=== PATIENT | female | born 1945 | race Caucasian/White ===

== ENCOUNTER 2016-08-07 20:30 | Inpatient (IN) | payer MEDICAID ==
[~2016-08-07] VITALS: Ht 154.9 cm; Wt 72.6 kg
[~2016-08-07 20:30] MED LIST: ACETAMINOPHEN325 M1 ORAL; AMBIEN5 MG ORAL; AMOXICILLIN500 MG ORAL; ASPIR-LOW81 MG PO; COLACE100 MG ORAL; DICLOFENAC SODI75 MG PO; FOLIC ACID1 MG ORAL; GLYBURIDE-METF1 EAC1 PO; HYDROCODON-ACE1 EA13 ORAL; LEVEMIR FL100 UNIT/1 SUBQ; LEVEMIR FL100 UNIT/2 SQ; LISINOPRIL40 MG PO; LISINOPRIL5 MG ORAL; LOVENOX10 MG SUBQ; METHOTREXATE2.5 MG PO; MIRALAX17 G2 ORAL; NORCO 5-325 TA1 EACH PO; NOVOLOG100 UNITS1 SUBQ; RANITIDINE HCL150 MG ORAL; SENNA-GEN8.6 M1 ORAL; ZOCOR20 M1 ORAL
[2016-08-07 22:00] VITALS: BP 107/49
[2016-08-07 22:23] LABS: MEAN CORPUSCULAR HGB CONC 33.1 G/DL (32.0-36.0); MEAN CORPUSCULAR VOLUME 94 FL (80-99); MEAN PLATELET VOLUME 6.2 FL (6.5-10.1); PLATELET COUNT 213 K/UL (150-450); RED CELL DISTRIBUTION WIDTH 15.3 % (11.6-14.8); WHITE BLOOD COUNT 9.6 K/UL (4.8-10.8)
[2016-08-07 22:38] LABS: ALANINE AMINOTRANSFERASE 27 U/L (3-33); ALBUMIN/GLOBULIN RATIO 0.7 (1.0-2.7); ASPARTATE AMINO TRANSFERASE 42 U/L (5-40); CALCIUM 9.2 mg/dL (8.6-10.2); CARBON DIOXIDE 21 mEQ/L (20-30); CREATININE 1.5 mg/dL (0.5-0.9); HEMOLYSIS 2; SODIUM 132 mEQ/L (135-145); TROPONIN I < 0.30 ng/mL (<=0.30)
[2016-08-07 22:39] LABS: ANION GAP 19 (5-15); CHLORIDE 92 mEQ/L (98-107); POTASSIUM 4.1 mEQ/L (3.4-4.9)
[2016-08-07 22:41] LABS: REFLEX LACTIC ACID YES OR NO YES
[2016-08-07 22:48] LABS: CKMB < 1.5 ng/mL (< 3.8)
[2016-08-07 23:00] LABS: BAND NEUTROPHILS % (MANUAL) 5 % (0-8); LYMPHOCYTES % (MANUAL) 8 % (20-45); NEUTROPHILS % (MANUAL) 85 % (45-75); TOTAL CELLS COUNTED 100
[2016-08-07 23:01] LABS: BASOPHILS % (MANUAL) 0 % (0-2); EOSINOPHILS % (MANUAL) 0 % (0-3); PLATELET ESTIMATE ADEQUATE; PLATELET MORPHOLOGY NORMAL
[2016-08-07 23:02] LABS: APPEARANCE,URINE CLOUDY; KETONES,URINE NEGATIVE (NEGATIVE); LEUKOCYTE ESTERASE ,URINE 3+ (NEGATIVE); NITRITE,URINE NEGATIVE (NEGATIVE); PROTEIN,URINE 3+ (NEGATIVE); UROBILINOGEN,URINE 4 MG/DL (0.0-1.0)
[2016-08-07 23:12] LABS: BACTERIA,URINE MANY /HPF; RBC,URINE 15-20 /HPF (0 - 2); SQUAMOUS EPITHELIAL CELL,UR MODERATE /LPF (NONE/OCC); WBC,URINE TNTC /HPF (0 - 2)
[2016-08-07] MEDS ORDERED: Unasyn 3gm Inj ONE (23:57)
[2016-08-08] VITALS (10 sets, daily range): BP systolic 85–112; BP diastolic 48–67
[2016-08-08] MEDS: Ampicillin/Sulbactam Sod 3 GM in NS 110 ML IV SCH ×2 (00:08→04:25)
[2016-08-08] MEDS: metroNIDAZOLE 500mg 100 ML IV SCH ×2 (00:54→04:59)
--- NOTE | 2016-08-08 00:55 | Emergency Room Report ---
History of Present Illness General Chief Complaint: Abnormal Labs Source: Patient, Family Member Present Illness HPI Patient is a 71-year-old female who presented after increased blood sugar. Patient was noted to have gradual onset of symptoms. She had subjective chills. The patient had prior history of [id number] diabetes. The patient had gradually worsening symptoms. She reported having some generalized body aches. She had been compliant with her medications reportedly. Patient reported having some increased lower abdominal pain as well as some dysuria. She is reported having some increased pain to her right side Allergies: Coded Allergies: No Known Allergies (Unverified , 12/21/11) Patient History Past Medical History: see triage record Reviewed Nursing Documentation: PMH: Agreed, PSxH: Agreed Nursing Documentation-PMH Hx Cardiac Problems: No Hx Hypertension: Yes Hx Diabetes: Yes Hx Cancer: No Hx Gastrointestinal Problems: No Hx Neurological Problems: No Hx Headaches: Yes Hx Numbness: Yes - HANDS AND FEET Hx Weakness: Yes Review of Systems All Other Systems: negative except mentioned in HPI Physical Exam Vital Signs Date Time Temp Pulse Resp B/P Pulse Ox O2 Delivery O2 Flow Rate FiO2 08/07/16 20:53 99.7 142 18 111/72 96 Room Air Sp02 EP Interpretation: reviewed, normal General Appearance: alert, GCS 15, moderate distress, obese Head: atraumatic ENT: normal ENT inspection, hearing grossly normal, normal voice Neck: normal inspection, full range of motion, supple, no bony tend Respiratory: normal inspection, lungs clear, normal breath sounds, no respiratory distress, no retraction, no wheezing Cardiovascular #1: tachycardia, edema Gastrointestinal: normal inspection, normal bowel sounds, non tender, soft, no guarding, no hernia Genitourinary: normal inspection Musculoskeletal: normal inspection, back normal, normal range of motion Neurologic: normal inspection, alert, oriented x3, responsive, machine filler servicer III-XII nml as tested, speech normal Psychiatric: normal inspection, judgement/insight normal, mood/affect normal Skin: normal inspection, normal color, no rash Procedures Critical Care Time Critical Care Time Patient had a critical medical condition which untreated could potentially result in life or limb threatening injury. Total critical care time excluding procedures approximately 45 minutes. Medical Decision Making Diagnostic Impression: Primary Impression: Pyelonephritis Additional Impressions: Sepsis Leukocytosis Diabetes ER Course Patient presented for high blood sugar . The patient was noted to have some fever. . Differential diagnosis included was not limited to anemia, urinary tract infection, electrolyte abnormality, hypothyroidism, myocardial infarction , myasthenia gravis, dehydration, among others. EKG to remove me showed sinus tachycardia with a rate of 131 there were no acute ST or T wave changes noted. Rhythm strip interpreted by me showed sinus tachycardia without evident PVCs or ectopy. The patient was given IV fluids as well as IV antibiotics. Laboratory testing was notable for elevated blood sugar as well as white blood count normal with a left shift. Urinalysis showed too numerous to count white cells. Lactic acid level was 2.0. Dr. mathews was contacted for inpatient management. Labs Test 08/07/16 21:12 08/07/16 21:50 08/07/16 23:40 Urine Color Yellow Urine Appearance Cloudy Urine pH 5.0 (4.5-8.0) Urine Specific [place] 1.020 (1.005-1.035) Urine Protein 3+ (NEGATIVE) Urine Glucose (UA) 3+ (NEGATIVE) Urine Ketones Negative (NEGATIVE) Urine Occult Blood 4+ (NEGATIVE) Urine Nitrite Negative (NEGATIVE) Urine Bilirubin Negative (NEGATIVE) Urine Urobilinogen 4 MG/DL (0.0-1.0) Urine Leukocyte Esterase 3+ (NEGATIVE) Urine RBC 15-20 /HPF (0 - 2) Urine WBC Tntc /HPF (0 - 2) Urine Squamous Epithelial Cells Moderate /LPF (NONE/OCC) Urine Bacteria Many /HPF (NONE) White Blood Count 9.6 K/UL (4.8-10.8) Red Blood Count 3.70 M/UL (4.20-5.40) Hemoglobin 11.5 G/DL (12.0-16.0) Hematocrit 34.6 % (37.0-47.0) Mean Corpuscular Volume 94 FL (80-99) Mean Corpuscular Hemoglobin 31.0 PG (27.0-31.0) Mean Corpuscular Hemoglobin Concent 33.1 G/DL (32.0-36.0) Red Cell Distribution Width 15.3 % (11.6-14.8) Platelet Count 213 K/UL (150-450) Mean Platelet Volume 6.2 FL (6.5-10.1) Neutrophils (%) (Auto) % (45.0-75.0) Lymphocytes (%) (Auto) % (20.0-45.0) Monocytes (%) (Auto) % (1.0-10.0) Eosinophils (%) (Auto) % (0.0-3.0) Basophils (%) (Auto) % (0.0-2.0) Differential Total Cells Counted 100 Neutrophils % (Manual) 85 % (45-75) Lymphocytes % (Manual) 8 % (20-45) Monocytes % (Manual) 2 % (1-10) Eosinophils % (Manual) 0 % (0-3) Basophils % (Manual) 0 % (0-2) Band Neutrophils 5 % (0-8) Platelet Estimate Adequate Platelet Morphology Normal Red Blood Cell Morphology Normal Sodium Level 132 mEQ/L (135-145) Potassium Level 4.1 mEQ/L (3.4-4.9) Chloride Level 92 mEQ/L (98-107) Carbon Dioxide Level 21 mEQ/L (20-30) Anion Gap 19 (5-15) Blood Urea Nitrogen 32 mg/dL (7-23) Creatinine 1.5 mg/dL (0.5-0.9) Estimat Glomerular Filtration Rate mL/min (>60) Glucose Level 374 mg/dL (74-106) Calcium Level 9.2 mg/dL (8.6-10.2) Total Bilirubin 1.0 mg/dL (0.0-1.2) Aspartate Amino Transf (AST/SGOT) 42 U/L (5-40) Alanine Aminotransferase (ALT/SGPT) 27 U/L (3-33) Alkaline Phosphatase 132 U/L (35-104) Total Creatine Kinase 46 U/L (26-140) Creatine Kinase MB < 1.5 ng/mL (< 3.8) Creatine Kinase MB Relative Index Troponin I < 0.30 ng/mL (<=0.30) Total Protein 8.0 g/dL (6.6-8.7) Albumin 3.5 g/dL (3.5-5.2) Globulin 4.5 g/dL Albumin/Globulin Ratio 0.7 (1.0-2.7) Lactic Acid Level 1.10 mmol/L (0.66-2.22) EKG Diagnostic Results Rate: tachycardiac - 131 Chest X-Ray Diagnostic Results EP Interpretation: Yes Findings: no consolidation, no effusion, no pneumothorax, no acute cardiopulmonary disease Number of Views: 1 Last Vital Signs Date Time Temp Pulse Resp B/P Pulse Ox O2 Delivery O2 Flow Rate FiO2 08/08/16 00:00 98.9 104 21 112/48 97 Room Air Status: unchanged Disposition: ADMITTED INPATIENT Condition: Serious Referrals: NON PHYSICIAN (PCP) Michael Tucker Aug 08, 2016 00:55
[2016-08-08] MEDS ORDERED: Morphine Sulfate 4mg/ml Inj IVP ONE (04:00)
[2016-08-08] MEDS ORDERED: Unasyn 3gm Inj ONE (04:24)
[2016-08-08] MEDS ORDERED: LORazepam Inj 2mg/ml 1ml IV ONE (04:45)
[2016-08-08] MEDS: NovoLOG Insulin Flexpen SUBQ SCH ×4 (06:30→22:02)
[2016-08-08] MEDS ORDERED: Cefepime 500mg in D5W 55ml IVPB SCH (08:00)
[2016-08-08] MEDS ORDERED: Heparin 5000 units/ml inj SUBQ SCH (09:00)
[2016-08-08] MEDS ORDERED: Lisinopril 10mg tab ORAL SCH (09:00)
[2016-08-08] MEDS ORDERED: Cefepime HCl 1 GM in D5W 55 ML IV SCH (09:00)
[2016-08-08 09:35] LABS: MEAN CORPUSCULAR HEMOGLOBIN 31.1 PG (27.0-31.0); MEAN CORPUSCULAR HGB CONC 32.7 G/DL (32.0-36.0); MEAN CORPUSCULAR VOLUME 95 FL (80-99); PLATELET COUNT 161 K/UL (150-450); RED BLOOD COUNT 3.03 M/UL (4.20-5.40); RED CELL DISTRIBUTION WIDTH 15.2 % (11.6-14.8); WHITE BLOOD COUNT 13.9 K/UL (4.8-10.8)
[2016-08-08 09:48] LABS: ANION GAP 15 (5-15); CALCIUM 7.8 mg/dL (8.6-10.2); CARBON DIOXIDE 20 mEQ/L (20-30); CHLORIDE 103 mEQ/L (98-107); CREATININE 1.3 mg/dL (0.5-0.9); HEMOLYSIS 4; PHOSPHORUS 2.9 mg/dL (2.5-4.8); POTASSIUM 3.7 mEQ/L (3.4-4.9); SODIUM 138 mEQ/L (135-145)
--- NOTE | 2016-08-08 10:01 | Cardiology Report ---
APPROVED REPORT EKG Measurement Heart [id number] Sinus tachycardia Otherwise normal ECG
[2016-08-08 10:21] LABS: BAND NEUTROPHILS % (MANUAL) 2 % (0-8); BASOPHILS % (MANUAL) 0 % (0-2); EOSINOPHILS % (MANUAL) 5 % (0-3); LYMPHOCYTES % (MANUAL) 12 % (20-45); NEUTROPHILS % (MANUAL) 74 % (45-75); PLATELET ESTIMATE ADEQUATE; PLATELET MORPHOLOGY NORMAL; TOTAL CELLS COUNTED 100
--- NOTE | 2016-08-08 11:01 | Diagnostic Imaging Report ---
Indication: Dyspnea Comparison: 03/01/15 A single view chest radiograph was obtained. Findings: No definite infiltrate or pulmonary vascular congestion identified. The heart is enlarged. The aorta is mildly enlarged consistent with atherosclerotic vascular disease. The bones are osteopenic. Impression: No acute disease
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
--- NOTE | 2016-08-08 13:34 | History and Physical ---
History of Present Illness General Date patient seen: Aug 08, 2016 Reason for Hospitalization: Abnormal Labs Present Illness HPI 71-year-old female with hx of DM, HTN presented to ER with CC of increased blood sugar, subjective chills. She reported having some generalized body aches. She had been compliant with her medications reportedly. Patient reported having some increased lower abdominal pain as well as some dysuria. She was diagnosed to have UTI and uncontrolled DM and admitted to Telemetry for further w/u. Allergies: Coded Allergies: No Known Allergies (Unverified , 12/21/11) Medication History Scheduled Aspirin* (Aspir-Low*), 81 MG PO DAILY, (Reported) Docusate Sodium* (Colace*), 100 MG ORAL TWICE A DAY Enoxaparin* (Lovenox*), 30 MG SUBQ EVERY 12 HOURS Folic Acid* (Folic Acid*), 1 MG ORAL DAILY, (Reported) Insulin Aspart (Novolog Flexpen), 0 UNITS SUBQ BEFORE MEALS AND HS Insulin Detemir (Levemir Flexpen), 10 UNITS SUBQ QHS Lisinopril (Lisinopril*), 10 MG ORAL DAILY, (Reported) Methotrexate Sodium* (Methotrexate*), 12.5 MG PO QWEEK, (Reported) Ranitidine Hcl* (Zantac*), 150 MG ORAL QHS, (Reported) Simvastatin (Zocor), 20 MG ORAL BEDTIME, (Reported) Scheduled PRN Acetaminophen* (Acetaminophen*), 650 MG ORAL Q4H PRN for fever Hydrocodone Bit/Acetaminophen 10-325* (Hydrocodon-Acetaminophn 10-325*), 1 EA ORAL Q4H PRN for mod pain Polyethylene Glycol 3350* (Miralax*), 17 GM ORAL HSPRN PRN for Constipation Sennosides (Senna-Gen), 8.6 MG ORAL DAILY PRN for Constipation Zolpidem Tartrate* (Ambien*), 5 MG ORAL HSPRN PRN for Insomnia Patient History Healthcare decision maker Resuscitation status Advanced Directive on File Past Medical/Surgical History Past Medical/Surgical History: (1) Diabetes (2) HTN (hypertension) (3) Anemia Review of Systems All Other Systems: negative except mentioned in HPI Physical Exam Lines, tubes and drains: peripheral, central line HEENT: normocephalic, atraumatic Neck: non-tender, normal alignment Respiratory/Chest: chest wall non-tender, lungs clear Cardiovascular/Chest: normal peripheral pulses, normal rate Abdomen: normal bowel sounds, non tender Genitourinary/Rectal: normal genital exam, normal rectal exam Extremities: normal range of motion, non-tender Last 24 Hour Vital Signs Date Time Temp Pulse Resp B/P Pulse Ox O2 Delivery O2 Flow Rate FiO2 08/08/16 12:33 98.1 95 18 90/54 96 Nasal Cannula 2.0 08/08/16 08:46 96.4 101 18 104/67 100 Nasal Cannula 2.0 08/08/16 08:30 102 08/08/16 08:06 100 17 90/53 100 Nasal Cannula 2.0 08/08/16 07:55 100 17 81/49 97 Nasal Cannula 2.0 08/08/16 07:01 98.0 99 17 85/49 97 Nasal Cannula 2.0 08/08/16 06:00 98.9 101 17 88/49 99 Nasal Cannula 2.0 08/08/16 04:24 98.7 08/08/16 04:00 98.7 108 18 98/49 99 Room Air 08/08/16 03:10 98.7 08/08/16 02:00 98.7 105 19 109/51 97 Room Air 08/08/16 00:00 98.9 104 21 112/48 97 Room Air 08/07/16 22:00 117 20 107/49 98 Room Air 08/07/16 20:53 99.7 142 18 111/72 96 Room Air Intake and Output 08/07/16 08/08/16 19:00 07:00 Intake Total 2900 ml Balance 2900 ml Intake IV Total 2900 ml # Voids 1 Laboratory Tests Test 08/07/16 21:12 08/07/16 21:50 08/07/16 23:40 08/08/16 08:30 Urine Color Yellow Urine Appearance Cloudy Urine pH 5.0 (4.5-8.0) Urine Specific [place] 1.020 (1.005-1.035) Urine Protein 3+ (NEGATIVE) H Urine Glucose (UA) 3+ (NEGATIVE) H Urine Ketones Negative (NEGATIVE) Urine Occult Blood 4+ (NEGATIVE) H Urine Nitrite Negative (NEGATIVE) Urine Bilirubin Negative (NEGATIVE) Urine Urobilinogen 4 MG/DL (0.0-1.0) H Urine Leukocyte Esterase 3+ (NEGATIVE) H Urine RBC 15-20 /HPF (0 - 2) H Urine WBC Tntc /HPF (0 - 2) H Urine Squamous Epithelial Cells Moderate /LPF (NONE/OCC) H Urine Bacteria Many /HPF (NONE) H White Blood Count 9.6 K/UL (4.8-10.8) 13.9 K/UL (4.8-10.8) H Red Blood Count 3.70 M/UL (4.20-5.40) L 3.03 M/UL (4.20-5.40) L Hemoglobin 11.5 G/DL (12.0-16.0) L 9.4 G/DL (12.0-16.0) L Hematocrit 34.6 % (37.0-47.0) L 28.8 % (37.0-47.0) L Mean Corpuscular Volume 94 FL (80-99) 95 FL (80-99) Mean Corpuscular Hemoglobin 31.0 PG (27.0-31.0) 31.1 PG (27.0-31.0) H Mean Corpuscular Hemoglobin Concent 33.1 G/DL (32.0-36.0) 32.7 G/DL (32.0-36.0) Red Cell Distribution Width 15.3 % (11.6-14.8) H 15.2 % (11.6-14.8) H Platelet Count 213 K/UL (150-450) 161 K/UL (150-450) Mean Platelet Volume 6.2 FL (6.5-10.1) L 6.0 FL (6.5-10.1) L Neutrophils (%) (Auto) % (45.0-75.0) % (45.0-75.0) Lymphocytes (%) (Auto) % (20.0-45.0) % (20.0-45.0) Monocytes (%) (Auto) % (1.0-10.0) % (1.0-10.0) Eosinophils (%) (Auto) % (0.0-3.0) % (0.0-3.0) Basophils (%) (Auto) % (0.0-2.0) % (0.0-2.0) Differential Total Cells Counted 100 100 Neutrophils % (Manual) 85 % (45-75) H 74 % (45-75) Lymphocytes % (Manual) 8 % (20-45) L 12 % (20-45) L Monocytes % (Manual) 2 % (1-10) 7 % (1-10) Eosinophils % (Manual) 0 % (0-3) 5 % (0-3) H Basophils % (Manual) 0 % (0-2) 0 % (0-2) Band Neutrophils 5 % (0-8) 2 % (0-8) Platelet Estimate Adequate Adequate Platelet Morphology Normal Normal Red Blood Cell Morphology Normal Normal Sodium Level 132 mEQ/L (135-145) L 138 mEQ/L (135-145) Potassium Level 4.1 mEQ/L (3.4-4.9) 3.7 mEQ/L (3.4-4.9) Chloride Level 92 mEQ/L (98-107) L 103 mEQ/L (98-107) Carbon Dioxide Level 21 mEQ/L (20-30) 20 mEQ/L (20-30) Anion Gap 19 (5-15) H 15 (5-15) Blood Urea Nitrogen 32 mg/dL (7-23) H 27 mg/dL (7-23) H Creatinine 1.5 mg/dL (0.5-0.9) H 1.3 mg/dL (0.5-0.9) H Estimat Glomerular Filtration Rate mL/min (>60) mL/min (>60) Glucose Level 374 mg/dL (74-106) H 224 mg/dL (74-106) #H Lactic Acid Level 2.00 mmol/L (0.66-2.22) 1.10 mmol/L (0.66-2.22) Calcium Level 9.2 mg/dL (8.6-10.2) 7.8 mg/dL (8.6-10.2) L Total Bilirubin 1.0 mg/dL (0.0-1.2) Aspartate Amino Transf (AST/SGOT) 42 U/L (5-40) H Alanine Aminotransferase (ALT/SGPT) 27 U/L (3-33) Alkaline Phosphatase 132 U/L (35-104) H Total Creatine Kinase 46 U/L (26-140) Creatine Kinase MB < 1.5 ng/mL (< 3.8) Creatine Kinase MB Relative Index Troponin I < 0.30 ng/mL (<=0.30) Total Protein 8.0 g/dL (6.6-8.7) Albumin 3.5 g/dL (3.5-5.2) 2.8 g/dL (3.5-5.2) L Globulin 4.5 g/dL Albumin/Globulin Ratio 0.7 (1.0-2.7) L Phosphorus Level 2.9 mg/dL (2.5-4.8) Height (Feet): 5 Height (Inches): 1.00 Weight (Pounds): 160 Medications Current Medications Medications (Trade) Dose Ordered Sig/Emory Route PRN Reason Start Time Stop Time Status Last Admin Dose Admin Acetaminophen (Tylenol) 650 mg Q4H PRN ORAL fever 08/08/16 00:00 09/07/16 00:00 Al Hydroxide/Mg Hydroxide (Mylanta II) 30 ml Q6H PRN ORAL dyspepsia 08/08/16 00:00 09/07/16 00:00 Albuterol/ Ipratropium (DuoNeb 0.5-3(2.5)mg/3ml) 3 ml Q4H PRN HHN Shortness of Breath 08/08/16 00:00 08/13/16 00:00 Cefepime HCl/ Dextrose (Maxipime/D5W) 55 ml @ 110 mls/hr Q24H IVPB 08/08/16 08:00 08/15/16 07:59 08/08/16 10:39 Dextrose STAT PRN IV Hypoglycemia 08/08/16 00:00 09/07/16 00:00 Heparin Sodium (Porcine) (Heparin 5000 units/ml) 5,000 units EVERY 12 HOURS SUBQ 08/08/16 09:00 09/07/16 08:59 08/08/16 09:32 Insulin Aspart (NovoLOG) BEFORE MEALS AND HS SUBQ 08/08/16 06:30 09/07/16 06:29 Lisinopril (Zestril) 10 mg DAILY ORAL 08/08/16 09:00 09/07/16 08:59 Nitroglycerin (Ntg) 0.4 mg Q5M PRN SL Prn Chest Pain 08/08/16 00:00 09/07/16 00:00 Ondansetron HCl (Zofran) 4 mg Q6H PRN IVP Nausea & Vomiting 08/08/16 00:00 09/07/16 00:00 Polyethylene Glycol (Miralax) 17 gm DAILYPRN PRN ORAL Constipation 08/08/16 00:00 09/07/16 00:00 Temazepam (Restoril) 15 mg HSPRN PRN ORAL Insomnia 08/08/16 00:00 08/15/16 00:00 Assessment/Plan Problem List: (1) Sepsis ICD Codes: A41.9 - Sepsis, unspecified organism SNOMED: 78909066 (2) Diabetes ICD Codes: E11.9 - Diabetes mellitus SNOMED: 94407456 (3) Pyelonephritis ICD Codes: N12 - Tubulo-interstitial nephritis, not specified as acute or chronic SNOMED: 33528170 (4) HTN (hypertension) ICD Codes: I10 - Essential (primary) hypertension SNOMED: 80780280 Assessment/Plan IV fluids IV antibiotics check cultures sliding scale diabetic diet. SABAR WELLS Aug 08, 2016 13:34
[2016-08-08] MEDS ORDERED: Mylanta II UD 30ml ORAL PRN ×2 (19:00)
[2016-08-08] MEDS ORDERED: DuoNeb 0.5-3(2.5)mg/3ml neb HHN PRN ×2 (19:00)
[2016-08-08] MEDS ORDERED: Miralax 17gm pkt ORAL PRN ×2 (19:00)
[2016-08-08] MEDS ORDERED: Nitroglycerin Subl 0.4mg tab (Bottle Of 25) SL PRN ×2 (19:00)
--- NOTE | 2016-08-08 19:28 | Consultation ---
DATE OF CONSULTATION: 08/08/2016 CONSULTING PHYSICIAN: Manjinder Flower M.D. REFERRING PHYSICIAN: Raul Worthy M.D. REASON FOR CONSULTATION: Urinary tract infection. HISTORY OF PRESENT ILLNESS: This is a 71-year-old diabetic female, admitted on 08/07/2016 with hyperglycemia. Urinalysis suggests probable urinary tract infection. Urine culture is pending. She has a history of growth of pansensitive E. coli. Associated acute leukocytosis, but no fevers or lactic acidosis. Chest x-ray shows no acute findings. Of note, upon chart review, the patient was noted in September 2015 to have mitral valve calcification versus vegetation. No blood cultures were sent at that time. Surveillance blood culture on this admission is pending. She has been started on empiric cefepime and ID now consulted to assist in management. PAST MEDICAL HISTORY: 1. Diabetes, uncontrolled with a hemoglobin A1c of 10.5% in September 2015. 2. Hypertension. PAST SURGICAL HISTORY: 1. Right knee open reduction and internal fixation on 10/01/2015. 2. . FAMILY HISTORY: Noncontributory. SOCIAL HISTORY: Denies tobacco, alcohol, or illicit drug abuse. ALLERGIES: No known drug allergies. MEDICATIONS: 1. Cefepime. 2. Subcutaneous heparin. 3. Lisinopril. 4. Insulin. REVIEW OF SYSTEMS: As per history of present illness. Ten systems reviewed. All pertinent positives and negatives noted. PHYSICAL EXAMINATION: VITAL SIGNS: Maximum temperature 99.7, blood pressure 90/54, heart rate in the 90s, respiratory rate 18, and saturating 96% on 2 liters nasal cannula. GENERAL: In no apparent distress. Nontoxic appearing. CARDIOVASCULAR: Regular rate and rhythm. No murmurs. PULMONARY: Clear to auscultation bilaterally. ABDOMINAL: Bowel sounds present. Soft, nondistended, and nontender. EXTREMITIES: Edema. LABORATORY DATA: White blood cell count 13.9, increased from 9.6; hemoglobin 9.4; and platelets 161,000. Sodium 138; potassium 3.7; chloride 103; bicarbonate 20; BUN 27; and creatinine 1.3, decreased from 1.5. Lactic acid 2, decreased to 1.1. AST 42, ALT 27, alkaline phosphatase 132, total bilirubin 1, and albumin 3.5. Troponin negative x1. MICROBIOLOGY: 1. From 08/07/2016, blood culture pending. 2. From 08/07/2016, urine culture pending with positive urinalysis. 3. From 08/07/2016, sputum culture pending. IMAGING: On 08/07/2016, chest x-ray, no acute findings. ASSESSMENT: 1. Probable recurrent urinary tract infection. Urine culture is pending. She has a history of growth of pansensitive Escherichia coli. Ultrasound is pending. 2. History of thickened mitral valve leaflets with echogenic material. Cannot exclude vegetation seen on echocardiogram. Transthoracic echocardiogram in September 2015 ruled out subacute bacterial endocarditis. No blood cultures were sent at that time and surveillance blood cultures on this admission are pending. 3. Acute leukocytosis, afebrile. 4. Acute renal failure, improved. 5. Diabetes with hyperglycemia. Hemoglobin A1c of 10.5% in September 2015. 6. No known drug allergies. 7. Full Code. PLAN: 1. Continue empiric IV cefepime day #1 of 3 to 5. 2. Repeat transthoracic echocardiogram. 3. Follow up cultures. 4. Monitor CBC and temperatures. 5. Monitor BMP. Thank you. We will follow. Manjinder Flower M.D. DR: CODY JOB#: [id number] CC: Raul Worthy M.D.; Fax#: [phone] Alborzi, M.D ; Fax#: [phone]
[2016-08-08] MEDS: Heparin 5000 units/ml inj SUBQ SCH (22:03)
[2016-08-09] VITALS (7 sets, daily range): BP systolic 96–144; BP diastolic 58–87
[2016-08-09] MEDS: NovoLOG Insulin Flexpen SUBQ SCH ×4 (06:07→20:44)
[2016-08-09 06:59] LABS: BASOPHILS % (AUTO) 0.3 % (0.0-2.0); EOSINOPHILS % (AUTO) 1.1 % (0.0-3.0); LYMPHOCYTES % (AUTO) 14.6 % (20.0-45.0); MEAN CORPUSCULAR HEMOGLOBIN 31.3 PG (27.0-31.0); MEAN CORPUSCULAR HGB CONC 33.5 G/DL (32.0-36.0); MEAN CORPUSCULAR VOLUME 93 FL (80-99); MEAN PLATELET VOLUME 6.4 FL (6.5-10.1); MONOCYTES % (AUTO) 6.4 % (1.0-10.0); NEUTROPHILS % (AUTO) 77.7 % (45.0-75.0); PLATELET COUNT 175 K/UL (150-450); RED BLOOD COUNT 2.97 M/UL (4.20-5.40); RED CELL DISTRIBUTION WIDTH 15.5 % (11.6-14.8); WHITE BLOOD COUNT 13.8 K/UL (4.8-10.8)
[2016-08-09 07:19] LABS: ALANINE AMINOTRANSFERASE 13 U/L (3-33); ALBUMIN/GLOBULIN RATIO 0.7 (1.0-2.7); ANION GAP 14 (5-15); ASPARTATE AMINO TRANSFERASE 16 U/L (5-40); CARBON DIOXIDE 21 mEQ/L (20-30); CHLORIDE 104 mEQ/L (98-107); CREATININE 0.9 mg/dL (0.5-0.9); CRP QUANT 17.9 mg/dL (< 0.5); HEMOLYSIS 0; MAGNESIUM 1.9 mg/dL (1.7-2.5); PHOSPHORUS 2.7 mg/dL (2.5-4.8); POTASSIUM 3.7 mEQ/L (3.4-4.9); SODIUM 139 mEQ/L (135-145); TOTAL PROTEIN 6.2 g/dL (6.6-8.7)
[2016-08-09] MEDS ORDERED: Cefepime HCl 500 MG in D5W 55 ML IVPB SCH (08:00)
[2016-08-09] MEDS: Heparin 5000 units/ml inj SUBQ SCH ×2 (08:45→20:43)
[2016-08-09] MEDS: Lisinopril 10mg tab ORAL SCH (08:46)
[2016-08-09 09:05] LABS: ERYTHROCYTE SEDIMENTATION RATE 93 MM/HR (0-30)
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
[2016-08-09] MEDS ORDERED: Promethazine/Codeine 5ml UD ORAL PRN (19:15)
[2016-08-09] MEDS ORDERED: Promethazine Plain 6.25mg/5ml ORAL PRN (20:30)
--- NOTE | 2016-08-09 22:30 | Pulmonology Progress Note ---
Assessment/Plan Problems: (1) Sepsis (2) Diabetes (3) Pyelonephritis (4) HTN (hypertension) Assessment/Plan iv antibiotics check cultures iv fluids sliding scale Subjective Allergies: Coded Allergies: No Known Allergies (Unverified , 12/21/11) Objective Last 24 Hour Vital Signs Date Time Temp Pulse Resp B/P Pulse Ox O2 Delivery O2 Flow Rate FiO2 08/09/16 19:30 86 20 Nasal Cannula 2.0 28 08/09/16 19:00 98.2 86 20 118/71 95 Nasal Cannula 2.0 08/09/16 16:00 97.5 83 20 118/66 95 Nasal Cannula 2.0 08/09/16 13:27 98.1 08/09/16 12:48 98.1 83 14 100/58 99 Room Air 08/09/16 08:46 99/59 08/09/16 07:35 98.1 84 15 99/59 98 Nasal Cannula 08/09/16 06:46 84 18 Nasal Cannula 2.0 08/09/16 04:00 98.2 97 19 111/69 97 Room Air 08/09/16 00:00 96.9 89 18 96/58 96 Room Air Intake and Output 08/08/16 08/09/16 19:00 07:00 Intake Total 430 ml 300 ml Output Total 250 ml Balance 180 ml 300 ml IV Total 430 ml 300 ml Output Urine Total 250 ml Objective Lines, tubes and drains: peripheral HEENT: normocephalic, atraumatic Neck: non-tender, normal alignment Respiratory/Chest: chest wall non-tender, lungs clear Cardiovascular/Chest: normal peripheral pulses, normal rate Abdomen: normal bowel sounds, non tender Genitourinary/Rectal: normal genital exam, normal rectal exam Extremities: normal range of motion, non-tender Microbiology Date/Time Source Procedure Growth Status 08/07/16 21:50 Blood Blood Culture - Preliminary NO GROWTH AFTER 24 HOURS Resulted 08/07/16 21:40 Blood Blood Culture - Preliminary NO GROWTH AFTER 24 HOURS Resulted 08/07/16 21:12 Urine,Clean Catch Urine Culture - Preliminary Gram Negative Bacillus 1 Resulted Laboratory Tests 08/09/16 05:20: Urine Osmolality [Pending], Urine Random Sodium 54, Urine Random Chloride 55, Urine Potassium Timed 14, Urine Legionella Antigen [Pending] 08/09/16 06:20: White Blood Count 13.8H, Red Blood Count 2.97L, Hemoglobin 9.3L, Hematocrit 27.7L, Mean Corpuscular Volume 93, Mean Corpuscular Hemoglobin 31.3H, Mean Corpuscular Hemoglobin Concent 33.5, Red Cell Distribution Width 15.5H, Platelet Count 175, Mean Platelet Volume 6.4L, Neutrophils (%) (Auto) 77.7H, Lymphocytes (%) (Auto) 14.6L, Monocytes (%) (Auto) 6.4, Eosinophils (%) (Auto) 1.1, Basophils (%) (Auto) 0.3, Erythrocyte Sedimentation Rate 93H, Sodium Level 139, Potassium Level 3.7, Chloride Level 104, Carbon Dioxide Level 21, Anion Gap 14, Blood Urea Nitrogen 19, Creatinine 0.9, Estimat Glomerular Filtration Rate , Glucose Level 103#, Calcium Level 8.0L, Phosphorus Level 2.7, Magnesium Level 1.9, Total Bilirubin 0.4, Aspartate Amino Transf (AST/SGOT) 16, Alanine Aminotransferase (ALT/SGPT) 13, Alkaline Phosphatase 89, C-Reactive Protein, Quantitative 17.9H, Total Protein 6.2L, Albumin 2.6L, Globulin 3.6, Albumin/ Globulin Ratio 0.7L Current Medications Medications (Trade) Dose Ordered Sig/[place] Route PRN Reason Start Time Stop Time Status Last Admin Dose Admin Acetaminophen (Tylenol) 650 mg Q4H PRN ORAL fever 08/08/16 19:00 09/07/16 18:59 08/09/16 12:28 Al Hydroxide/Mg Hydroxide (Mylanta II) 30 ml Q6H PRN ORAL dyspepsia 08/08/16 19:00 09/07/16 18:59 Albuterol/ Ipratropium (DuoNeb 0.5-3(2.5)mg/3ml) 3 ml Q4H PRN HHN Shortness of Breath 08/08/16 19:00 08/13/16 18:59 Cefepime HCl/ Dextrose (Maxipime/D5W) 55 ml @ 110 mls/hr Q24H IVPB 08/10/16 08:00 08/17/16 07:59 Dextrose (Dextrose 50%) STAT PRN IV Hypoglycemia 08/08/16 19:00 09/07/16 18:59 Heparin Sodium (Porcine) (Heparin 5000 units/ml) 5,000 units EVERY 12 HOURS SUBQ 08/08/16 21:00 09/07/16 20:59 08/09/16 20:43 Ibuprofen (Motrin) 400 mg Q6H PRN ORAL For Pain 08/08/16 19:00 09/07/16 18:59 08/09/16 04:20 Insulin Aspart (NovoLOG) BEFORE MEALS AND HS SUBQ 08/08/16 21:00 09/07/16 20:59 08/09/16 20:44 Lisinopril (Zestril) 10 mg DAILY ORAL 08/09/16 09:00 09/08/16 08:59 Nitroglycerin (Ntg) 0.4 mg Q5M PRN SL Prn Chest Pain 08/08/16 19:00 09/07/16 18:59 Ondansetron HCl (Zofran) 4 mg Q6H PRN IVP Nausea & Vomiting 08/08/16 19:00 09/07/16 18:59 Polyethylene Glycol (Miralax) 17 gm DAILYPRN PRN ORAL Constipation 08/08/16 19:00 09/07/16 18:59 Promethazine HCl (Phenergan Plain) 6.25 mg Q4HR PRN ORAL SINUS PAIN 08/09/16 20:30 09/08/16 20:29 Sodium Chloride (0.45% NS 1000ml) 1,000 ml @ 75 mls/hr [id number] IV 08/08/16 19:30 09/07/16 19:29 08/09/16 20:41 Temazepam 15 mg 15 mg HSPRN PRN ORAL Insomnia 08/08/16 19:00 08/15/16 18:59 SABRA WELLS Aug 09, 2016 22:30
[2016-08-10 04:00] VITALS: BP 159/95
[2016-08-10] MEDS: NovoLOG Insulin Flexpen SUBQ SCH ×4 (06:08→20:11)
[2016-08-10] MEDS ORDERED: Cefepime 1gm/D5W 55ml IVPB SCH ×2 (08:00)
[2016-08-10 08:16] VITALS: BP 157/95
[2016-08-10] MEDS: Heparin 5000 units/ml inj SUBQ SCH ×2 (08:19→20:12)
[2016-08-10] MEDS: Lisinopril 10mg tab ORAL SCH (08:20)
[2016-08-10] MEDS: Ertapenem 1 GM in NS 55 ML IVPB SCH (10:05)
[2016-08-10 11:49] VITALS: BP 139/75
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
--- NOTE | 2016-08-10 15:12 | Pulmonology Progress Note ---
Assessment/Plan Problems: (1) Sepsis (2) Diabetes (3) Pyelonephritis (4) HTN (hypertension) Assessment/Plan iv antibiotics check cultures iv fluids sliding scale ecoli in urine dc home in 1-2 days anemia w/u Subjective ROS Limited/Unobtainable: No Constitutional: Reports: no symptoms HEENT: Repors: no symptoms Respiratory: Reports: no symptoms Allergies: Coded Allergies: No Known Allergies (Unverified , 12/21/11) Objective Last 24 Hour Vital Signs Date Time Temp Pulse Resp B/P Pulse Ox O2 Delivery O2 Flow Rate FiO2 08/10/16 11:49 98.0 85 20 139/75 99 Room Air 08/10/16 08:20 157/95 08/10/16 08:16 98.2 107 20 157/95 100 Room Air 08/10/16 07:59 107 20 Nasal Cannula 2.0 28 08/10/16 04:00 98.2 107 20 159/95 100 Room Air 08/09/16 23:42 97.7 89 20 144/87 97 Room Air 08/09/16 19:30 86 20 Nasal Cannula 2.0 28 08/09/16 19:00 98.2 86 20 118/71 95 Nasal Cannula 2.0 08/09/16 16:00 97.5 83 20 118/66 95 Nasal Cannula 2.0 Intake and Output 08/09/16 08/10/16 19:00 07:00 Intake Total 1705 ml 1065 ml Output Total 350 ml Balance 1705 ml 715 ml Intake Oral 900 ml 240 ml IV Total 805 ml 825 ml Output Urine Total 350 ml # Voids 1 6 Objective Lines, tubes and drains: peripheral HEENT: normocephalic, atraumatic Neck: non-tender, normal alignment Respiratory/Chest: chest wall non-tender, lungs clear Cardiovascular/Chest: normal peripheral pulses, normal rate Abdomen: normal bowel sounds, non tender Genitourinary/Rectal: normal genital exam, normal rectal exam Extremities: normal range of motion, non-tender Microbiology Date/Time Source Procedure Growth Status 08/07/16 21:50 Blood Blood Culture - Preliminary NO GROWTH AFTER 48 HOURS Resulted 08/07/16 21:40 Blood Blood Culture - Preliminary NO GROWTH AFTER 48 HOURS Resulted 08/07/16 21:12 Urine,Clean Catch Urine Culture - Final Escherichia Coli - Esbl Complete Current Medications Medications (Trade) Dose Ordered Sig/Emory Route PRN Reason Start Time Stop Time Status Last Admin Dose Admin Acetaminophen (Tylenol) 650 mg Q4H PRN ORAL fever 08/08/16 19:00 09/07/16 18:59 08/09/16 12:28 Al Hydroxide/Mg Hydroxide (Mylanta II) 30 ml Q6H PRN ORAL dyspepsia 08/08/16 19:00 09/07/16 18:59 Albuterol/ Ipratropium (DuoNeb 0.5-3(2.5)mg/3ml) 3 ml Q4H PRN HHN Shortness of Breath 08/08/16 19:00 08/13/16 18:59 Dextrose (Dextrose 50%) STAT PRN IV Hypoglycemia 08/08/16 19:00 09/07/16 18:59 Ertapenem/Sodium Chloride (INVanz/Sodium Chloride) 55 ml @ 110 mls/hr Q24H IVPB 08/10/16 10:00 08/15/16 09:59 08/10/16 10:05 Heparin Sodium (Porcine) (Heparin 5000 units/ml) 5,000 units EVERY 12 HOURS SUBQ 08/08/16 21:00 09/07/16 20:59 08/10/16 08:19 Ibuprofen (Motrin) 400 mg Q6H PRN ORAL For Pain 08/08/16 19:00 09/07/16 18:59 08/10/16 13:12 Insulin Aspart (NovoLOG) BEFORE MEALS AND HS SUBQ 08/08/16 21:00 09/07/16 20:59 08/10/16 12:00 Lisinopril (Zestril) 10 mg DAILY ORAL 08/09/16 09:00 09/08/16 08:59 08/10/16 08:20 Nitroglycerin (Ntg) 0.4 mg Q5M PRN SL Prn Chest Pain 08/08/16 19:00 09/07/16 18:59 Ondansetron HCl (Zofran) 4 mg Q6H PRN IVP Nausea & Vomiting 08/08/16 19:00 09/07/16 18:59 08/10/16 00:05 Polyethylene Glycol (Miralax) 17 gm DAILYPRN PRN ORAL Constipation 08/08/16 19:00 09/07/16 18:59 Promethazine HCl 6.25 mg 6.25 mg Q4HR PRN ORAL SINUS PAIN 08/09/16 20:30 09/08/16 20:29 08/10/16 00:05 Sodium Chloride (0.45% NS 1000ml) 1,000 ml @ 75 mls/hr [id number] IV 08/08/16 19:30 09/07/16 19:29 08/10/16 11:58 Temazepam (Restoril) 15 mg HSPRN PRN ORAL Insomnia 08/08/16 19:00 08/15/16 18:59 SABRA WELLS Aug 10, 2016 15:12
[2016-08-10 15:50] VITALS: BP 135/81
[2016-08-10 16:35] LABS: PROTHROMBIN TIME 10.1 SEC (9.30-11.50)
[2016-08-10 16:46] LABS: BASOPHILS % (AUTO) 0.2 % (0.0-2.0); EOSINOPHILS % (AUTO) 1.8 % (0.0-3.0); LYMPHOCYTES % (AUTO) 25.1 % (20.0-45.0); MEAN CORPUSCULAR HEMOGLOBIN 31.6 PG (27.0-31.0); MEAN CORPUSCULAR VOLUME 93 FL (80-99); MEAN PLATELET VOLUME 5.6 FL (6.5-10.1); MONOCYTES % (AUTO) 7.7 % (1.0-10.0); NEUTROPHILS % (AUTO) 65.3 % (45.0-75.0); PLATELET COUNT 192 K/UL (150-450); RED BLOOD COUNT 2.95 M/UL (4.20-5.40); RED CELL DISTRIBUTION WIDTH 15.4 % (11.6-14.8); WHITE BLOOD COUNT 7.4 K/UL (4.8-10.8)
[2016-08-10 19:00] VITALS: BP 148/86
[2016-08-10 20:29] LABS: ANISOCYTOSIS 1+; BAND NEUTROPHILS % (MANUAL) 0 % (0-8); BASOPHILS % (MANUAL) 0 % (0-2); EOSINOPHILS % (MANUAL) 2 % (0-3); HYPOCHROMASIA 1+; LYMPHOCYTES % (MANUAL) 23 % (20-45); NEUTROPHILS % (MANUAL) 71 % (45-75); PLATELET ESTIMATE ADEQUATE; PLATELET MORPHOLOGY NORMAL; TOTAL CELLS COUNTED 100
[2016-08-10 20:38] LABS: PATH BLOOD SMEAR/OMC SENT TO PATHOLOGIST
[2016-08-11] VITALS: BP 126/78
[2016-08-11 04:00] VITALS: BP 148/85
[2016-08-11 05:56] LABS: BASOPHILS % (AUTO) 0.3 % (0.0-2.0); EOSINOPHILS % (AUTO) 2.1 % (0.0-3.0); LYMPHOCYTES % (AUTO) 26.6 % (20.0-45.0); MEAN CORPUSCULAR HEMOGLOBIN 31.2 PG (27.0-31.0); MEAN CORPUSCULAR HGB CONC 33.2 G/DL (32.0-36.0); MEAN CORPUSCULAR VOLUME 94 FL (80-99); MEAN PLATELET VOLUME 5.9 FL (6.5-10.1); MONOCYTES % (AUTO) 8.6 % (1.0-10.0); NEUTROPHILS % (AUTO) 62.4 % (45.0-75.0); PLATELET COUNT 203 K/UL (150-450); RED BLOOD COUNT 3.16 M/UL (4.20-5.40); RED CELL DISTRIBUTION WIDTH 15.6 % (11.6-14.8); WHITE BLOOD COUNT 6.7 K/UL (4.8-10.8)
[2016-08-11] MEDS: NovoLOG Insulin Flexpen SUBQ SCH ×2 (06:11→11:30)
[2016-08-11 08:13] VITALS: BP 124/66
[2016-08-11] MEDS: Lisinopril 10mg tab ORAL SCH (09:37)
[2016-08-11] MEDS: Ertapenem 1 GM in NS 55 ML IVPB SCH (09:37)
[2016-08-11] MEDS: Heparin 5000 units/ml inj SUBQ SCH (09:38)
[2016-08-11 12:28] VITALS: BP 141/95
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
--- NOTE | 2016-08-11 15:36 | Cardiology Report ---
APPROVED REPORT EXAM: Two-dimensional and M-mode echocardiogram with Doppler and color Doppler. INDICATION Endocarditis M-Mode DIMENSIONS IVSd0.9 (0.7-1.1cm)Left Atrium (MM)3.9 (1.6-4.0cm) LVDd3.7 (3.5-5.6cm)Aortic Root2.3 (2.0-3.7cm) PWd0.7 (0.7-1.1cm)Aortic Cusp Exc.1.7 (1.5-2.0cm) LVDs2.1 (2.5-4.0cm) Technically difficult study due to poor acoustic windows. Normal left ventricular chamber size, systolic function and wall motion. Left ventricular ejection fraction estimated to be 60-65%. No evidence of left ventricular hypertrophy. Anterior Echo-free space, may be due to pericardial fat or effusion. Right cardiac chamber sizes are within normal limits. Mild left atrial enlargement by 2D. Focal aortic valve sclerosis with adequate cusp excursion Thickened mitral valve leaflets with normal excursion. Moderate mitral annulus and aortic root calcification. Pulmonic valve not well visualized. Normal tricuspid valve structure. IVC is normal in size with physiologic collapse. Echo density seen on anterior mitral valve (vegitation),consider MAX if clinically indicated. A color flow and spectral Doppler study was performed and revealed: No aortic regurgitation. Mild mitral regurgitation. Left ventricular diastolic dysfunction grade 1. Mild tricuspid regurgitation. Tricuspid systolic velocities suggests peak right ventricular systolic pressure of 30 mmHg
--- NOTE | 2016-08-11 15:41 | Pulmonology Progress Note ---
Assessment/Plan Problems: (1) Sepsis (2) Diabetes (3) Pyelonephritis (4) HTN (hypertension) Assessment/Plan improving sliding scale ecoli in urine dc home today with oral levofloxacin Subjective ROS Limited/Unobtainable: No Constitutional: Reports: no symptoms HEENT: Repors: no symptoms Allergies: Coded Allergies: No Known Allergies (Unverified , 12/21/11) Objective Last 24 Hour Vital Signs Date Time Temp Pulse Resp B/P Pulse Ox O2 Delivery O2 Flow Rate FiO2 08/11/16 12:28 97.5 87 20 141/95 97 Room Air 08/11/16 09:37 124/66 08/11/16 08:13 97.0 95 21 124/66 94 Room Air 08/11/16 07:35 91 20 Room Air 21 08/11/16 04:00 97.9 95 18 148/85 100 Room Air 08/11/16 00:00 98.1 93 20 126/78 96 Room Air 08/10/16 19:15 90 20 Nasal Cannula 2.0 28 08/10/16 19:00 97.9 91 20 148/86 95 Room Air 08/10/16 15:50 97.7 84 20 135/81 98 Room Air Intake and Output 08/10/16 08/11/16 19:00 07:00 Intake Total 1250 ml 1350 ml Output Total 400 ml 320 ml Balance 850 ml 1030 ml Intake Oral 520 ml 600 ml IV Total 730 ml 750 ml Output Urine Total 400 ml 320 ml # Voids 1 7 # Bowel Movements 1 Objective Lines, tubes and drains: peripheral HEENT: normocephalic, atraumatic Neck: non-tender, normal alignment Respiratory/Chest: chest wall non-tender, lungs clear Cardiovascular/Chest: normal peripheral pulses, normal rate Abdomen: normal bowel sounds, non tender Genitourinary/Rectal: normal genital exam, normal rectal exam Extremities: normal range of motion, non-tender General Appearance: WD/WN HEENT: normocephalic, atraumatic Respiratory/Chest: chest wall non-tender, lungs clear Cardiovascular: normal peripheral pulses, normal rate, no JVD Abdomen: soft, non tender Genitourinary: normal external genitalia Extremities: no clubbing 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, abnormal gait Laboratory Tests 08/10/16 16:00: White Blood Count 7.4, Red Blood Count 2.95L, Hemoglobin 9.3L, Hematocrit 27.4L , Mean Corpuscular Volume 93, Mean Corpuscular Hemoglobin 31.6H, Mean Corpuscular Hemoglobin Concent 34.0, Red Cell Distribution Width 15.4H, Platelet Count 192, Mean Platelet Volume 5.6L, Neutrophils (%) (Auto) 65.3, Lymphocytes (%) (Auto) 25.1, Monocytes (%) (Auto) 7.7, Eosinophils (%) (Auto) 1.8, Basophils (%) (Auto) 0.2, Differential Total Cells Counted 100, Neutrophils % (Manual) 71, Lymphocytes % (Manual) 23, Monocytes % (Manual) 4, Eosinophils % (Manual) 2, Basophils % (Manual) 0, Band Neutrophils 0, Platelet Estimate Adequate, Platelet Morphology Normal, Hypochromasia 1+, Anisocytosis 1+ , Erythrocyte Sedimentation Rate 95H, Reticulocyte Count 1.0, Prothrombin Time 10.1, Prothromb Time International Ratio 1.0, Activated Partial Thromboplast Time 26, Iron Level 28L, Total Iron Binding Capacity 185L, Percent Iron Saturation 15, Unsaturated Iron Binding 157, Lactate Dehydrogenase 155, Carcinoembryonic Antigen 1.7, Vitamin B12 Level 30L, Folate 15.5 08/11/16 04:00: White Blood Count 6.7, Red Blood Count 3.16L, Hemoglobin 9.9L, Hematocrit 29.6L , Mean Corpuscular Volume 94, Mean Corpuscular Hemoglobin 31.2H, Mean Corpuscular Hemoglobin Concent 33.2, Red Cell Distribution Width 15.6H, Platelet Count 203, Mean Platelet Volume 5.9L, Neutrophils (%) (Auto) 62.4, Lymphocytes (%) (Auto) 26.6, Monocytes (%) (Auto) 8.6, Eosinophils (%) (Auto) 2.1, Basophils (%) (Auto) 0.3 08/11/16 11:05: Stool Occult Blood [Pending] Current Medications Medications (Trade) Dose Ordered Sig/Emory Route PRN Reason Start Time Stop Time Status Last Admin Dose Admin Acetaminophen (Tylenol) 650 mg Q4H PRN ORAL fever 08/08/16 19:00 09/07/16 18:59 08/09/16 12:28 Al Hydroxide/Mg Hydroxide (Mylanta II) 30 ml Q6H PRN ORAL dyspepsia 08/08/16 19:00 09/07/16 18:59 Albuterol/ Ipratropium (DuoNeb 0.5-3(2.5)mg/3ml) 3 ml Q4H PRN HHN Shortness of Breath 08/08/16 19:00 08/13/16 18:59 Dextrose (Dextrose 50%) STAT PRN IV Hypoglycemia 08/08/16 19:00 09/07/16 18:59 Ertapenem/Sodium Chloride (INVanz/Sodium Chloride) 55 ml @ 110 mls/hr Q24H IVPB 08/10/16 10:00 08/15/16 09:59 08/11/16 09:37 Heparin Sodium (Porcine) (Heparin 5000 units/ml) 5,000 units EVERY 12 HOURS SUBQ 08/08/16 21:00 09/07/16 20:59 08/11/16 09:38 Ibuprofen (Motrin) 400 mg Q6H PRN ORAL For Pain 08/08/16 19:00 09/07/16 18:59 08/11/16 06:17 Insulin Aspart (NovoLOG) BEFORE MEALS AND HS SUBQ 08/08/16 21:00 09/07/16 20:59 08/11/16 11:30 Lisinopril (Zestril) 10 mg DAILY ORAL 08/09/16 09:00 09/08/16 08:59 08/11/16 09:37 Nitroglycerin (Ntg) 0.4 mg Q5M PRN SL Prn Chest Pain 08/08/16 19:00 09/07/16 18:59 Ondansetron HCl (Zofran) 4 mg Q6H PRN IVP Nausea & Vomiting 08/08/16 19:00 09/07/16 18:59 08/10/16 00:05 Polyethylene Glycol (Miralax) 17 gm DAILYPRN PRN ORAL Constipation 08/08/16 19:00 09/07/16 18:59 Promethazine HCl 6.25 mg 6.25 mg Q4HR PRN ORAL SINUS PAIN 08/09/16 20:30 09/08/16 20:29 08/10/16 00:05 Sodium Chloride (0.45% NS 1000ml) 1,000 ml @ 75 mls/hr [id number] IV 08/08/16 19:30 09/07/16 19:29 08/11/16 03:00 Temazepam (Restoril) 15 mg HSPRN PRN ORAL Insomnia 08/08/16 19:00 08/15/16 18:59 SABRA WELLS Aug 11, 2016 15:41
[2016-08-11] MEDS ORDERED: LEVAQUIN500 MG ORAL (15:53)
[2016-08-11] MEDS ORDERED: 1/2 NS 1000ml IV ONE (16:22)
[2016-08-11] MEDS ORDERED: Tubing IV Secondary IV ONE (16:22)
--- NOTE | 2016-08-12 12:02 | Discharge Summary ---
Discharge Summary Hospital Course Date of Admission Aug 07, 2016 at 22:33 Date of Discharge Aug 11, 2016 at 16:23 Admitting Diagnosis hyperglycemia, sepsis HPI Emilia Chapman is a 71 year old female who was admitted on Aug 07, 2016 at 22:33 for Hyperglycemia,Sepsis Hospital Course [id number] Discharge Discharge Disposition Patient was discharged to Home (01) Discharge Diagnoses: Gabby Liz NP Aug 12, 2016 12:02
--- NOTE | 2016-08-13 01:38 | Discharge Summary 2 SIG ---
DATE OF ADMISSION: 08/07/2016 DATE OF DISCHARGE: 08/11/2016 PRODUCT SAFETY TESTER: Manjinder Flower M.D. BRIEF HOSPITAL COURSE: The patient is a 71-year-old female with history of diabetes and hypertension, who presented to ED complaining of increased blood sugar and subjective chills accompanied with generalized body aches and reported abdominal pain and dysuria. On evaluation at ED, she was diagnosed to have urinary tract infection and uncontrolled diabetes and was admitted to telemetry for further workup. She was initially tachycardic on arrival to ED. WBC was elevated to 13.9. Dr. Flower was consulted. From prior admission in September 2015, she had a mitral valve calcification from echocardiogram. At that time, no blood cultures were sent. During this admission, surveillance blood culture was done and was started on empiric cefepime. A repeat transthoracic echocardiogram done, again showed thickening on the mitral valve, however blood cultures remained negative. Urine culture showed growth of ESBL E. coli. Ultrasound of the kidney showed normal echogenicity. No hydronephrosis and no focal abnormality. The patient was cleared for discharge to continue p.o. Levaquin and was recommended to undergo transesophageal echocardiogram to evaluate mitral valve. The patient was discharged home. FINAL DIAGNOSES: 1. Sepsis. 2. Pyelonephritis. 3. Diabetes mellitus. 4. Anemia. 5. Hypertension. 6. Recurrent extended-spectrum beta-lactamases Escherichia coli urinary tract infection. 7. Thickened mitral valve leaflets. 8. Acute kidney injury. 9. Diabetes mellitus, out of control. Raul Worthy M.D. I have been assigned to dictate discharge summary on this account and I was not involved in the patient's management. Gabby Liz N.P. DR: BEN JOB#: [id number] CC: MARCE
== END 2016-08-11 16:23 | disposition home or self-care (01) | DRG 720 ==
LOC: EMR 22:00 → 2E 22:33 → EDBEDREQ 08-08 06:02 → 4E 08-08 18:53
DX: A41.9 Sepsis, unspecified organism (principal); N17.9 Acute kidney failure, unspecified; E11.65 Type 2 diabetes mellitus with hyperglycemia; D64.9 Anemia, unspecified; N12 Tubulo-interstitial nephritis, not specified as acute or chronic; I10 Essential (primary) hypertension; B96.20 Unspecified Escherichia coli [E. coli] as the cause of diseases classified elsewhere; Z16.12 Extended spectrum beta lactamase (ESBL) resistance; Z79.4 Long term (current) use of insulin
CPT/HCPCS: 36415; 71010; 76775; 80053; 80069; 81003; 82164; 82270; 82378; 82436; 82550; 82553; 82607; 82746; 82962; 83540; 83550; 83605; 83615; 83735; 83935; 84100; 84133; 84300; 84484; 85007; 85025; 85044; 85060; 85610; 85651; 85730; 86140; 87040; 87086; 87181; 93005; 93306; 94664; J1815; J2405

== ENCOUNTER 2019-10-11 13:19 | Inpatient (IN) | payer MEDICAID ==
[~2019-10-11] VITALS: Ht 160 cm; Wt 72.1 kg
[~2019-10-11 13:19] MED LIST changes: +LEVAQUIN500 MG ORAL
[2019-10-11] MEDS ORDERED: Tetanus/Diptheria/Pertussis IM ONE (13:30)
[2019-10-11] MEDS ORDERED: Morphine Sulfate 4mg/ml Inj (IV USE ONLY) IVP ONE (13:30)
[2019-10-11 13:45] VITALS: BP 132/78
--- NOTE | 2019-10-11 13:45 | NUR ---
ED Nurse Note: Pt brought in by ambulance rfrom home d/t mechanical fall. Pt reports being on stairs and missing a step and falling on right side. Denies head injury or loss of consciousness. Pt c/o right hip to right knee pain. Also c/o right elbow pain. Abrasion noted on right elbow. Respirations even and unlabored on room air. Vitals stable as documented.
[2019-10-11] MEDS ORDERED: GLIPIZIDE5 MG ORAL (13:57)
[2019-10-11 14:23] LABS: BASOPHILS % (AUTO) 1.2 % (0.0-2.0); EOSINOPHILS % (AUTO) 2.2 % (0.0-3.0); HEMATOCRIT 34.5 % (37.0-47.0); HEMOGLOBIN 11.9 G/DL (12.0-16.0); LYMPHOCYTES % (AUTO) 34.9 % (20.0-45.0); MEAN CORPUSCULAR VOLUME 90 FL (80-99); NEUTROPHILS % (AUTO) 56.8 % (45.0-75.0); PLATELET COUNT 231 K/UL (150-450); RED BLOOD COUNT 3.83 M/UL (4.20-5.40); RED CELL DISTRIBUTION WIDTH 14.9 % (11.6-14.8); WHITE BLOOD COUNT 8.5 K/UL (4.8-10.8)
[2019-10-11 14:26] LABS: ANION GAP 14 mmol/L (5-15); BLOOD UREA NITROGEN 25 mg/dL (7-18); CALCIUM 9.4 MG/DL (8.5-10.1); CARBON DIOXIDE 22 MMOL/L (21-32); CHLORIDE 103 MMOL/L (98-107); CREATININE 1.1 MG/DL (0.55-1.30); POTASSIUM 4.6 MMOL/L (3.5-5.1); SODIUM 139 MMOL/L (136-145)
--- NOTE | 2019-10-11 14:26 | NUR ---
ED Nurse Note: Pt in radiology
[2019-10-11 14:29] LABS: INR 0.9 (0.9-1.1)
[2019-10-11 14:35] LABS: ALANINE AMINOTRANSFERASE 32 U/L (12-78); ALBUMIN 3.7 G/DL (3.4-5.0); ALBUMIN/GLOBULIN RATIO 0.8 (1.0-2.7); ALKALINE PHOSPHATASE 63 U/L (46-116); ASPARTATE AMINO TRANSFERASE 23 U/L (15-37); BILIRUBIN,TOTAL 0.5 MG/DL (0.2-1.0)
--- NOTE | 2019-10-11 15:01 | Emergency Room Report ---
History of Present Illness General Chief Complaint: Multiple Trauma/Fall Source: Patient, EMS Present Illness HPI 74-year-old female history of osteoarthritis, diabetes, hypertension presents with right hip pain after mechanical fall patient tripped down 1 stair, fell on her right hip, she states she was unable to walk she endorses sharp right hip pain worsened with movement alleviated with rest severity is severe lasting a few minutes patient denies hitting her head or LOC patient presents for evaluation Allergies: Coded Allergies: No Known Allergies (Unverified , 12/21/11) COVID-19 Screening Contact w/high risk pt: No Recent Travel to affected area: No Experienced COVID-19 symptoms?: No Patient History Past Medical History: see triage record Reviewed Nursing Documentation: PMH: Agreed; PSxH: Agreed Nursing Documentation-PMH Past Medical History: No History, Except For Hx Hypertension: Yes Hx Diabetes: Yes Hx Cancer: No Hx Gastrointestinal Problems: Yes Hx Neurological Problems: No Hx Headaches: Yes Hx Numbness: Yes - HANDS AND FEET Hx Weakness: Yes Review of Systems All Other Systems: negative except mentioned in HPI Physical Exam Vital Signs Date Time Temp Pulse Resp B/P (MAP) Pulse Ox O2 Delivery O2 Flow Rate FiO2 10/11/19 13:30 97.0 97 17 138/72 (94) 99 Room Air Sp02 EP Interpretation: reviewed, normal General Appearance: well appearing, no apparent distress, alert Head: normocephalic, atraumatic Eyes: bilateral eye PERRL, bilateral eye EOMI ENT: uvula midline, moist mucus membranes Neck: supple, thyroid normal, supple/symm/no masses Respiratory: lungs clear, no respiratory distress, no retraction, no accessory muscle use Cardiovascular #1: normal peripheral pulses, regular rate, rhythm, no edema, no gallop, no murmur Gastrointestinal: non tender, soft, no guarding, no rebound Musculoskeletal: other - Right hip tender to palpation, 2+ PT DP, leg length discrepancy of the right leg Neurologic: alert, oriented x3 Psychiatric: mood/affect normal Skin: no rash, warm/dry Medical Decision Making Diagnostic Impression: Primary Impression: Fall Qualified Codes: W19.XXXA - Unspecified fall, initial encounter Additional Impression: Closed right hip fracture Qualified Codes: S72.001A - Fracture of unspecified part of neck of right femur, initial encounter for closed fracture ER Course 74-year-old female presents with mechanical fall now with right hip pain, differential diagnosis includes right hip fracture, contusion, bursitis Films of the right leg were ordered, CT scan was ordered, preoperative labs were ordered Patient admitted to [facility] under Dr. Oma Long consulted for ortho intervention Laboratory Tests Test 10/11/19 13:30 White Blood Count 8.5 K/UL (4.8-10.8) Red Blood Count 3.83 M/UL (4.20-5.40) L Hemoglobin 11.9 G/DL (12.0-16.0) L Hematocrit 34.5 % (37.0-47.0) L Mean Corpuscular Volume 90 FL (80-99) Mean Corpuscular Hemoglobin 31.0 PG (27.0-31.0) Mean Corpuscular Hemoglobin Concent 34.5 G/DL (32.0-36.0) Red Cell Distribution Width 14.9 % (11.6-14.8) H Platelet Count 231 K/UL (150-450) Mean Platelet Volume 5.2 FL (6.5-10.1) L Neutrophils (%) (Auto) 56.8 % (45.0-75.0) Lymphocytes (%) (Auto) 34.9 % (20.0-45.0) Monocytes (%) (Auto) 5.0 % (1.0-10.0) Eosinophils (%) (Auto) 2.2 % (0.0-3.0) Basophils (%) (Auto) 1.2 % (0.0-2.0) Prothrombin Time 9.7 SEC (9.30-11.50) Prothrombin Time INR 0.9 (0.9-1.1) Activated Partial Thromboplast Time 21 SEC (23-33) L Sodium Level 139 MMOL/L (136-145) Potassium Level 4.6 MMOL/L (3.5-5.1) Chloride Level 103 MMOL/L (98-107) Carbon Dioxide Level 22 MMOL/L (21-32) Anion Gap 14 mmol/L (5-15) Blood Urea Nitrogen 25 mg/dL (7-18) H Creatinine 1.1 MG/DL (0.55-1.30) Estimated Glomerular Filtration Rate 48.5 mL/min (>60) Glucose Level 263 MG/DL (74-106) H Calcium Level 9.4 MG/DL (8.5-10.1) Total Bilirubin 0.5 MG/DL (0.2-1.0) Aspartate Amino Transferase (AST) 23 U/L (15-37) Alanine Aminotransferase (ALT) 32 U/L (12-78) Alkaline Phosphatase 63 U/L (46-116) Total Protein 8.5 G/DL (6.4-8.2) H Albumin 3.7 G/DL (3.4-5.0) Globulin 4.8 g/dL Albumin/Globulin Ratio 0.8 (1.0-2.7) L EKG Diagnostic Results EKG Time: 14:00 EP Interpretation: NSR, rate 87, QTc 464, no acute ST elevations, normal axis Rhythm Strip Diag. Results Rhythm Strip Time: 14:05 EP Interpretation: yes Rate: 88 Rhythm: NSR, no PVC's, no ectopy Chest X-Ray Diagnostic Results Chest X-Ray Diagnostic Results : Chest X-Ray Ordered: Yes # of Views/Limited/Complete: 1 View Indication: Other - Preoperative EP Interpretation: Yes Interpretation: no consolidation, no effusion, no pneumothorax, no acute cardiopulmonary disease Impression: No acute disease Electronically Signed by: Vinicio Rodriguez MD Other X-Ray Diagnostic Results Other X-Ray Diagnostic Results : X-Ray ordered: Right hip # of Views/Limited Vs Complete: 3 View Indication: Pain EP Interpretation: Yes Interpretation: other - Fracture noted right hip Impression: Other - Right hip fracture Electronically Signed by: Vinicio Rodriguez MD CT/MRI/US Diagnostic Results CT/MRI/US Diagnostic Results : Impression Procedure: CT Abdomen Pelvis WO Contrast Indication: Abdominal pain and right hip pain status post fall Technique: Spiral acquisitions obtained through the abdomen and pelvis. No oral contrast utilized, per emergency room physician request No IV contrast utilized , per referring physician request.. Multiplanar reconstructions were generated. Total dose length product 389 mGycm. CTDIvol(s) 7 mGy. Dose reduction achieved using automated exposure control Comparison: 03/01/2015 Findings: There is a severely angulated right femoral neck fracture. No other acute fractures. Small focus of high attenuation is seen in the right hip soft tissues , likely representing a small area of contusion, not evident previously. No other evidence of fracture, hematoma, or contusion demonstrated. There are fairly extensive degenerative changes of the thoracic and lumbar spine. Lack of IV contrast limits assessment of the solid organs. The liver demonstrates a calcification within the right lobe. No other focal abnormality. The gallbladder , bile ducts are unremarkable. The pancreas demonstrates punctate calcifications in the tail which are also evident previously. The spleen, adrenals, kidneys are all unremarkable. No retroperitoneal or mesenteric mass or adenopathy. No pelvic mass or adenopathy. Uterus and adnexal structures appear unremarkable. Lack of enteric contrast limits assessment of the GI tract. The appendix is normal. No evidence of colonic diverticulosis or diverticulitis. No small bowel distention. No free or loculated intraperitoneal gas or fluid is evident. The distal esophagus and stomach are unremarkable. Lung bases demonstrate some scarring resulting in volume loss and mild bronchiectasis at the medial lung bases bilaterally. There is a 6 mm nodule at the left lung base which was evident previously. There are some dependent posterior atelectatic changes. Impression: Right femoral neck fracture. Please see separate pelvic CT report. Evidence of minimal overlying contusion No other acute bony or significant soft tissue trauma Limited assessment of the solid organs due to lack of contrast demonstration. No gross acute solid organ injury demonstrated Limited assessment of the GI tract, due to lack of enteric contrast administration. No gross acute process 6 mm left base lung nodule, also evident previously and unchanged and presumed benign The CT scanner at [facility] is accredited by the [employer] and the scans are performed using protocols designed to limit radiation exposure to as low as reasonably achievable to attain images of sufficient resolution adequate for diagnostic evaluation. Dictated By: Renny Antunez MD Electronically Signed By: Renny Antunez MD Signed Date/Time 10/11/19 1506 CC: Vinicio Rodriguez MD Last Vital Signs Date Time Temp Pulse Resp B/P (MAP) Pulse Ox O2 Delivery O2 Flow Rate FiO2 10/11/19 13:45 89 19 Room Air 10/11/19 13:45 97.0 132/78 99 Disposition: ADMITTED INPATIENT Condition: Stable Referrals: NON PHYSICIAN (PCP) Vinicio Rodriguez MD Oct 11, 2019 15:01
--- NOTE | 2019-10-11 15:07 | NUR ---
ED Nurse Note: Pt back from CT
--- NOTE | 2019-10-11 15:11 | Diagnostic Imaging Report ---
Indication: Abdominal pain and right hip pain status post fall Technique: Spiral acquisitions obtained through the abdomen and pelvis. No oral contrast utilized, per emergency room physician request No IV contrast utilized, per referring physician request.. Multiplanar reconstructions were generated. Total dose length product 389 mGycm. CTDIvol(s) 7 mGy. Dose reduction achieved using automated exposure control Comparison: 03/01/2015 Findings: There is a severely angulated right femoral neck fracture. No other acute fractures. Small focus of high attenuation is seen in the right hip soft tissues, likely representing a small area of contusion, not evident previously. No other evidence of fracture, hematoma, or contusion demonstrated. There are fairly extensive degenerative changes of the thoracic and lumbar spine. Lack of IV contrast limits assessment of the solid organs. The liver demonstrates a calcification within the right lobe. No other focal abnormality. The gallbladder, bile ducts are unremarkable. The pancreas demonstrates punctate calcifications in the tail which are also evident previously. The spleen, adrenals, kidneys are all unremarkable. No retroperitoneal or mesenteric mass or adenopathy. No pelvic mass or adenopathy. Uterus and adnexal structures appear unremarkable. Lack of enteric contrast limits assessment of the GI tract. The appendix is normal. No evidence of colonic diverticulosis or diverticulitis. No small bowel distention. No free or loculated intraperitoneal gas or fluid is evident. The distal esophagus and stomach are unremarkable. Lung bases demonstrate some scarring resulting in volume loss and mild bronchiectasis at the medial lung bases bilaterally. There is a 6 mm nodule at the left lung base which was evident previously. There are some dependent posterior atelectatic changes. Impression: Right femoral neck fracture. Please see separate pelvic CT report. Evidence of minimal overlying contusion No other acute bony or significant soft tissue trauma Limited assessment of the solid organs due to lack of contrast demonstration. No gross acute solid organ injury demonstrated Limited assessment of the GI tract, due to lack of enteric contrast administration. No gross acute process 6 mm left base lung nodule, also evident previously and unchanged and presumed benign The CT scanner at [facility] is accredited by the [employer] and the scans are performed using protocols designed to limit radiation exposure to as low as reasonably achievable to attain images of sufficient resolution adequate for diagnostic evaluation.
--- NOTE | 2019-10-11 15:12 | NUR ---
ED Nurse Note: NOLA-DAUGHTER SABRINA-SON MARÍA-GRAND DAUGHTER [phone]
[2019-10-11 15:30] VITALS: BP 141/74
[2019-10-11] MEDS ORDERED: Miralax 17gm pkt ORAL PRN (15:30)
[2019-10-11] MEDS ORDERED: Milk of Magnesia 30ml Ud ORAL PRN (15:30)
[2019-10-11] MEDS ORDERED: DiphenhydrAMINE 25mg Tab ORAL PRN (15:30)
--- NOTE | 2019-10-11 15:42 | Diagnostic Imaging Report ---
Indication: Right hip pain, status post fall Technique: No IV contrast, per trauma protocol. Spiral acquisitions obtained through the right hip. Multiplanar reconstructions were generated. Total dose length product 389 mGycm. CTDIvol(s) 7 mGy. Radiation dose was minimized using automated exposure control Comparison: Plain radiographs of earlier the same day, also 09/28/2015 CT scan Findings: There is a posteriorly angulated anteriorly displaced fracture of the right femoral neck. This is displaced by about one bone width. No other fractures are demonstrated. There is minimal overlying soft tissue contusion. There are degenerative changes of the lumbosacral junction. The pelvic viscera are unremarkable. Impression: Positive for right femoral neck fracture as described The CT scanner at [facility] is accredited by the [employer] and the scans are performed using protocols designed to limit radiation exposure to as low as reasonably achievable to attain images of sufficient resolution adequate for diagnostic evaluation.
--- NOTE | 2019-10-11 15:45 | Diagnostic Imaging Report ---
Indication: Elbow pain, trauma, status post fall Technique: 2 views of the right elbow Comparison: none Findings: Exam is somewhat limited due to the availability of only 2 views. Bones are osteoporotic. No definite joint effusion. No definite acute fractures. There are mild degenerative changes of the elbow joint. Impression: No definite acute bony trauma Osteoporotic change
--- NOTE | 2019-10-11 15:46 | Diagnostic Imaging Report ---
Indication: Chest pain Technique: One view of the chest Comparison: 08/07/2016 Findings: The lungs and pleural spaces are clear. The heart size is normal. The aorta is tortuous and calcified. No significant change Impression: No acute process
--- NOTE | 2019-10-11 15:49 | Diagnostic Imaging Report ---
Indication: Pain, trauma, status post fall Technique: 2 views of the right ankle Comparison: none Findings: Exam is limited due to the availability of only 2 views. No definite acute fractures. No dislocations. Bones appear osteoporotic. Impression: No definite acute bony trauma Osteoporotic changes
--- NOTE | 2019-10-11 16:17 | History and Physical ---
History of Present Illness General Reason for Hospitalization: Multiple Trauma/Fall Present Illness HPI 74-year-old female with PMH of osteoarthritis, IDDM, HTN who presents with right hip pain after ground-level fall. Pt is georgian speaking, history obtained via chart review and manifest/order organizer print orders at bedside. Patient states she was in her usual state of health when she slipped on the wet floor in her bathroom and landed on her right side. Pt denies hitting her head or any LOC. Patient noted right hip pain with difficulty ambulating which alerted patient to the ED. Pt states she is able to walk 1-2 blocks without feeling SOB/CP, has had previous surgeries in the past with no issues with anesthesia, no h/o FL or strokes. Patient denies any BOBO, cough, F/C, N/V, CP, S OB, abdominal pain, dysuria, constipation/diarrhea. ED course: CT hip revealed right femoral neck fracture for which patient is admitted for further treatment and evaluation. PMH: IDDM, HTN, OA FH: Reviewed and not pertinent Sx: Right tibial fx SH: Lives at home with family, denies tobacco/EtOH usage Allergies: NKDA Allergies: Coded Allergies: No Known Allergies (Unverified , 12/21/11) COVID-19 Screening Contact w/high risk pt: No Recent Travel to affected area: No Experienced COVID-19 symptoms?: No Medication History Scheduled Aspirin* (Aspir-Low*), 81 MG PO DAILY, (Reported) Docusate Sodium* (Colace*), 100 MG ORAL TWICE A DAY Enoxaparin* (Lovenox*), 30 MG SUBQ EVERY 12 HOURS Folic Acid* (Folic Acid*), 1 MG ORAL DAILY, (Reported) Glipizide* (Glipizide*), 5 MG ORAL BIDAC, (Reported) Insulin Aspart (Novolog Flexpen), 0 UNITS SUBQ BEFORE MEALS AND HS Insulin Detemir (Levemir Flexpen), 10 UNITS SUBQ QHS Levofloxacin* (Levaquin*), 500 MG ORAL DAILY, (Reported) Lisinopril (Lisinopril*), 40 MG ORAL DAILY, (Reported) Methotrexate Sodium* (Methotrexate*), 12.5 MG PO QWEEK, (Reported) Ranitidine Hcl* (Zantac*), 150 MG ORAL QHS, (Reported) Simvastatin (Zocor), 20 MG ORAL BEDTIME, (Reported) Scheduled PRN Acetaminophen* (Acetaminophen 325MG Tablet*), 650 MG ORAL Q4H PRN for fever Hydrocodone Bit/Acetaminophen 10-325* (Hydrocodon-Acetaminophn 10-325*), 1 EA ORAL Q4H PRN for mod pain Polyethylene Glycol 3350* (Miralax*), 17 GM ORAL HSPRN PRN for Constipation Sennosides (Senna-Gen), 8.6 MG ORAL DAILY PRN for Constipation Zolpidem Tartrate* (Ambien*), 5 MG ORAL HSPRN PRN for Insomnia Patient History Limited by: language barrier - pt speaks georgian Healthcare decision maker Resuscitation status Advanced Directive on File Review of Systems Constitutional: Denies: no symptoms, see HPI, chills, sweats, fever, malaise, weakness, other Eye: Denies: no symptoms, see HPI, eye pain, blurred vision, tearing, double vision, nose pain, nose congestion, acuity changes, discharge, other ENT: Denies: no symptoms, see HPI, ear pain, ear discharge, nose pain, nose congestion, throat pain, throat swelling, mouth pain, hearing loss, nasal discharge, other Respiratory: Denies: no symptoms, see HPI, cough, orthopnea, shortness of breath, stridor, wheezing, ESPINAL, sputum, other Cardiovascular: Denies: no symptoms, see HPI, chest pain, edema, palpitations, syncope, PND, other Gastrointestinal: Denies: no symptoms, see HPI, abdominal pain, constipation, diarrhea, nausea, vomiting, melena, hematemesis, other Genitourinary: Denies: no symptoms, see HPI, discharge, dysuria, frequency, hematuria, pain, retention, incontinence, urgency, vag bleed/dc, other Musculoskeletal: Denies: no symptoms, see HPI, back pain, gout, joint pain, joint swelling, muscle pain, muscle stiffness, other Skin: Denies: no symptoms, see HPI, rash, change in color, change in hair/nails , dryness, lesions, other Physical Exam Physical Exam Narrative General: NAD, A&O x 3, laying comfortably in bed HEENT: NCAT, EOMi, MMM CV: RRR, no murmurs, rubs, or gallops Pulm: CTAB, No wheezes, rhonchi, or rales, no accessory muscle usage or conversational dyspnea GI: Soft, nontender, nondistended, bowel sounds present Ext: No lower extremity edema bilaterally Skin: no rashes lesions or ulcers Msk: Joints symmetrical in upper extremity and lower extremity bilaterally, no joint swelling. Neuro: CN 2-12 grossly intact bilaterally, no focal signs. Last 24 Hour Vital Signs Date Time Temp Pulse Resp B/P (MAP) Pulse Ox O2 Delivery O2 Flow Rate FiO2 10/11/19 15:30 91 17 141/74 95 Room Air 10/11/19 13:45 89 19 Room Air 10/11/19 13:45 97.0 89 17 132/78 99 Room Air 10/11/19 13:30 97.0 97 17 138/72 (94) 99 Room Air Laboratory Tests Test 10/11/19 13:30 White Blood Count 8.5 K/UL (4.8-10.8) Red Blood Count 3.83 M/UL (4.20-5.40) L Hemoglobin 11.9 G/DL (12.0-16.0) L Hematocrit 34.5 % (37.0-47.0) L Mean Corpuscular Volume 90 FL (80-99) Mean Corpuscular Hemoglobin 31.0 PG (27.0-31.0) Mean Corpuscular Hemoglobin Concent 34.5 G/DL (32.0-36.0) Red Cell Distribution Width 14.9 % (11.6-14.8) H Platelet Count 231 K/UL (150-450) Mean Platelet Volume 5.2 FL (6.5-10.1) L Neutrophils (%) (Auto) 56.8 % (45.0-75.0) Lymphocytes (%) (Auto) 34.9 % (20.0-45.0) Monocytes (%) (Auto) 5.0 % (1.0-10.0) Eosinophils (%) (Auto) 2.2 % (0.0-3.0) Basophils (%) (Auto) 1.2 % (0.0-2.0) Prothrombin Time 9.7 SEC (9.30-11.50) Prothromb Time International Ratio 0.9 (0.9-1.1) Activated Partial Thromboplast Time 21 SEC (23-33) L Sodium Level 139 MMOL/L (136-145) Potassium Level 4.6 MMOL/L (3.5-5.1) Chloride Level 103 MMOL/L (98-107) Carbon Dioxide Level 22 MMOL/L (21-32) Anion Gap 14 mmol/L (5-15) Blood Urea Nitrogen 25 mg/dL (7-18) H Creatinine 1.1 MG/DL (0.55-1.30) Estimat Glomerular Filtration Rate 48.5 mL/min (>60) Glucose Level 263 MG/DL (74-106) H Calcium Level 9.4 MG/DL (8.5-10.1) Total Bilirubin 0.5 MG/DL (0.2-1.0) Aspartate Amino Transf (AST/SGOT) 23 U/L (15-37) Alanine Aminotransferase (ALT/SGPT) 32 U/L (12-78) Alkaline Phosphatase 63 U/L (46-116) Total Protein 8.5 G/DL (6.4-8.2) H Albumin 3.7 G/DL (3.4-5.0) Globulin 4.8 g/dL Albumin/Globulin Ratio 0.8 (1.0-2.7) L Height (Feet): 5 Height (Inches): 4.00 Weight (Pounds): 160 Medications Current Medications Medications (Trade) Dose Ordered Sig/Emory Route PRN Reason Start Time Stop Time Status Last Admin Dose Admin Acetaminophen (Tylenol) 650 mg Q4H PRN ORAL Mild Pain (Pain Scale 1-3) 10/11/19 15:30 11/10/19 15:29 Acetaminophen (Tylenol) 650 mg Q4H PRN ORAL Temp >100.5 10/11/19 15:30 11/10/19 15:29 Bisacodyl (Dulcolax) 10 mg HSPRN PRN RECTAL Constipation 10/11/19 15:30 01/09/20 15:29 Dextrose (Dextrose 50%) 25 ml Q30M PRN IV Hypoglycemia 10/11/19 15:30 01/09/20 15:29 Dextrose (Dextrose 50%) 50 ml Q30M PRN IV Hypoglycemia 10/11/19 15:30 01/09/20 15:29 Diphenhydramine HCl (Benadryl) 25 mg Q6H PRN ORAL Itching/Pruritis 4/24/20 15:30 11/10/19 15:29 Docusate Sodium (Colace) 100 mg EVERY 12 HOURS ORAL 10/11/19 21:00 11/10/19 20:59 Folic Acid (Folate) 1 mg DAILY ORAL 10/12/19 09:00 11/11/19 08:59 Insulin Aspart (NovoLOG) No Dose BEFORE MEALS AND HS SUBQ 10/11/19 16:30 01/09/20 16:29 Insulin Detemir (Levemir) 10 units QHS SUBQ 10/11/19 21:00 01/09/20 20:59 Lisinopril (PriniviL) 40 mg DAILY ORAL 10/12/19 09:00 11/11/19 08:59 Magnesium Hydroxide (Mom) 30 ml HSPRN PRN ORAL Constipation 10/11/19 15:30 11/10/19 15:29 Polyethylene Glycol (Miralax) 17 gm HSPRN PRN ORAL Constipation 10/11/19 15:30 11/10/19 15:29 Assessment/Plan Assessment/Plan: 74-year-old female with PMH of osteoarthritis, IDDM, HTN who presents with right hip pain after ground-level fall. #Right Femoral Neck Fracture #Ground Level Fall -admit to med surg -CT hip w/evidence of Rt femoral neck fx -fall precautions -pain control -PT/OT -check vit d levels -Ortho consulted, Dr. Long, plan for OR tomorrow. -NPO past MN, NS Pre-op Eval -mets>4, EKG NSR, CXR negatve for acute process, pt with PMH IDDM, HTN, OA, no h /o strokes or FL. Previous surgeries with no issues with anesthesia. -Given the assessment above, pt is at intermediate risk for a low risk non- cardiac surgery. #IDDM -holding home glipizide -cont. home insulin, detemir 10 qhs -ISS/accuchecks qAC/HS #HTN cont. home meds, lisinopril #6mm Left Base Pulmonary Nodule -Seen on CT Chest -stable/unchanged from previous, likely benign -cont. to monitor DVT PPx: SCDs Time spent on encounter: 70 mins, 40 mins spent on pt counseling, coordination of care. Discussed case w/ER physician, Ortho and CHRONIC MANAGER. Time of note doesn't reflect time of encounter. Haydee Cortes M.D. Oct 11, 2019 16:17
[2019-10-11] MEDS ORDERED: Insulin NovoLOG Flexpen S/S (Mod) SUBQ SCH (16:30)
[2019-10-11] MEDS ORDERED: NovoLOG Insulin Flexpen SUBQ SCH (16:30)
--- NOTE | 2019-10-11 16:45 | NUR ---
ED Nurse Note: Pt transferred safely to 4E. Report given to CHLOE Almonte. Belongings verified.
--- NOTE | 2019-10-11 16:53 | Diagnostic Imaging Report ---
Indications: Pain, trauma, status post fall Technique: Two views of the right femur Comparison: None Findings: There is an angulated fracture of the femoral neck. Bones are osteoporotic. No shaft fracture demonstrated. There are postsurgical changes of the tibia Impression: Positive for right femoral neck fracture
--- NOTE | 2019-10-11 16:54 | Diagnostic Imaging Report ---
Indication: Pain, trauma, status post fall Technique: One view of the pelvis, 2 views of the right hip Comparison: none Findings: There is an angulated fracture of the femoral neck. No pelvic fracture demonstrated. Bones are osteoporotic. The joint spaces are preserved. There are mild degenerative proliferative changes of the joints. Impression: Positive for right femoral neck fracture
--- NOTE | 2019-10-11 17:00 | NUR ---
NURSE NOTES: Patient admitted from ER, received report from Fabiola CORONA. Patient is AxOx4, Zambian speaking only, noted pain on right hip 7/10 exacerbated by movement due to hip fracture on femoral neck, given IV morphine in ER. Patient transferred to bed, PIV on left hand intact and infusing IVF as ordered. SCD's applied. Patient oriented to room, belongings accounted for. Patient had $724 in patiño which was picked up by daughter. All admission orders reviewed. Patient noted with abrasion over right elbow, otherwise skin intact. Bed low and locked, siderails up x2, call light within reach, will continue to monitor.
--- NOTE | 2019-10-11 18:00 | NUR ---
NURSE NOTES: Spoke with Dr. Caden Long orthopedic surgeon to clarify time and procedure of surgery for this patient. Pt is scheduled for right hip hemiarthroplasty tomorrow 10/11 12nn. Received orders to obtain consent. also said he left message with dry house tender. Charge nurse Lalita spoke [facility] dry house tender to confirm surgery scheduled for tomorrow. Telephone consent obtained with patient's daughter Destiny and placed in chart, endorsed to NOC shift CHLOE Kim. Patient must also be NPO after midnight in preparation for procedure tomorrow.
--- NOTE | 2019-10-11 18:01 | Diagnostic Imaging Report ---
Indication: Pain, status post fall Technique: 2 views of the right tibia and fibula Comparison: none Findings: There is evidence of prior surgical repair of a proximal tibial fracture. There is depression of the lateral tibial plateau, probably chronic and related to prior injury. Hardware appears intact. No definite acute fractures. No dislocations. Impression: Postsurgical and posttraumatic changes of the proximal tibia, as described No evidence of acute shaft fracture.
--- NOTE | 2019-10-11 18:03 | Diagnostic Imaging Report ---
Indication: Pain, trauma, status post fall Technique: 2 views of the right knee Comparison: none Findings: Exam is limited, due to the availability of only 2 views. There is surgical hardware reducing old healed lateral tibial plateau and proximal tibial fracture. There is mild degenerative change of the medial joint compartment. No acute fractures. No dislocations. There is small superior pole patellar spur. The bones are osteoporotic Impression: Postsurgical and posttraumatic changes, as described. No definite acute bony trauma Osteoporotic change
--- NOTE | 2019-10-11 19:30 | NUR ---
Verbal report received from Marilia CORONA. Lakshmi for Right hip surgery 10/11. Consent via telephone with daughter, signed and on chart. NPO after midnight and chlorhex prep Bath. Also endorse Dagmar makes pt "loopy...do not give". Dr. Long for Right Hip Hemiarthroplasty.
[2019-10-11 20:00] VITALS: BP 100/61
--- NOTE | 2019-10-11 20:06 | NUR ---
HAND-OFF: Report given to Judy CORONA.
[2019-10-11] MEDS: Levemir Flexpen SUBQ SCH (21:00)
[2019-10-11] MEDS: NovoLOG Insulin Flexpen SUBQ SCH (21:00)
[2019-10-11] MEDS: Docusate 100mg cap ORAL SCH (21:13)
[2019-10-12] VITALS (12 sets, daily range): BP systolic 102–147; BP diastolic 57–107
[2019-10-12] MEDS: NovoLOG Insulin Flexpen SUBQ SCH ×4 (06:30→20:14)
--- NOTE | 2019-10-12 07:30 | NUR ---
NURSE NOTES: pt c/o pain right hip, morphine prn given will monitor effectiveness. call light within reach. no distress. will monitor. Addendum: 10/12/19 at 2313 by LEORA GRAIBAY RN this note is for 1929
--- NOTE | 2019-10-12 07:40 | NUR ---
NURSE NOTES: Report received from Keysha CORONA. Patient seen on rounds, AxOx4, c/o pain on right hip rated 6/10 exacerbated by position changes and SCD. Removed SCD for one hour. Patient is not in distress, tolerating room air. On NPO since 12MN for anticipated surgery except for meds with sips of water. RN reports that primary MD is aware of this. PIV on left forearm patent and infusing IVF as ordered. Bed is low and locked, siderails up x2, call light within reach, instructed to call nurse for assistance. Will continue to monitor.
[2019-10-12 07:43] LABS: BASOPHILS % (AUTO) 0.5 % (0.0-2.0); EOSINOPHILS % (AUTO) 4.7 % (0.0-3.0); HEMATOCRIT 30.6 % (37.0-47.0); HEMOGLOBIN 10.8 G/DL (12.0-16.0); LYMPHOCYTES % (AUTO) 26.3 % (20.0-45.0); MEAN CORPUSCULAR VOLUME 90 FL (80-99); MONOCYTES % (AUTO) 7.9 % (1.0-10.0); NEUTROPHILS % (AUTO) 60.6 % (45.0-75.0); PLATELET COUNT 181 K/UL (150-450); RED CELL DISTRIBUTION WIDTH 14.9 % (11.6-14.8); WHITE BLOOD COUNT 6.5 K/UL (4.8-10.8)
[2019-10-12 07:55] LABS: ANION GAP 9 mmol/L (5-15); BLOOD UREA NITROGEN 19 mg/dL (7-18); CALCIUM 8.8 MG/DL (8.5-10.1); CARBON DIOXIDE 24 MMOL/L (21-32); CHLORIDE 102 MMOL/L (98-107); CREATININE 0.7 MG/DL (0.55-1.30); POTASSIUM 3.7 MMOL/L (3.5-5.1); SODIUM 135 MMOL/L (136-145)
--- NOTE | 2019-10-12 08:00 | NUR ---
Verbal report to Marilia CORONA who assumed care of pt at this time.
--- NOTE | 2019-10-12 09:00 | NUR ---
NURSE NOTES: Dr. Soto from [facility]/on-call for Dr. Salamanca saw patient on rounds, received orders to start on Tramadol 25mg PO prn q4hrs for moderate pain and 50mg PO PRN q4hrs for severe pain, Morphine 2mg IV prn q4hrs for moderate pain if unable to tolerate PO meds and 5mg IV prn q4hrs for severe pain if unable to tolerate PO meds. Orders noted and carried out.
[2019-10-12] MEDS ORDERED: Depo-Medrol 40mg Inj ONE (09:41)
[2019-10-12] MEDS ORDERED: Kenalog-40 1ml Vial ONE (09:41)
[2019-10-12] MEDS ORDERED: EPINEPHrine 1mg/1ml Amp ONE ×2 (09:41→12:02)
[2019-10-12] MEDS ORDERED: Morphine Sulfate PF 0 ML ONE (09:41)
[2019-10-12] MEDS ORDERED: Bacitracin 50000 Units Vial ONE (09:42)
[2019-10-12] MEDS ORDERED: NeoSporin Gu Irrig 1ml Amp IRRIG ONE (09:42)
[2019-10-12] MEDS ORDERED: traMADol 50mg tab ORAL PRN ×2 (09:45)
[2019-10-12] MEDS: Lisinopril 20mg tab ORAL SCH (09:49)
[2019-10-12] MEDS: Docusate 100mg cap ORAL SCH ×3 (09:49→20:13)
[2019-10-12] MEDS: Morphine Sulfate 2mg/ml Inj(IV/IM USE ONLY) IVP PRN (10:05)
--- NOTE | 2019-10-12 10:53 | NUR ---
NURSE NOTES: Received call from OR nurse Tiana, surgery scheduled for 12:30 today, will steel pickler at 12:00. Also obtained telephone consent from patient's daughter Destiny for blood transfusion. Consent in chart.
[2019-10-12] MEDS ORDERED: ceFAZolin 2gm/50ml Premix 50 ML IVPB SCH (11:00)
[2019-10-12] MEDS ORDERED: LR 1000ml 1,000 ML IVLG SCH (11:51)
--- NOTE | 2019-10-12 11:57 | Anethesia Preoperative Eval ---
Anesthesia Pre-op PMH/ROS General Date of Evaluation: Oct 12, 2019 Time of Evaluation: 11:59 Anesthesiologist: Tulio ASA Score: ASA 3 Mallampati Score Class I : Soft palate, uvula, fauces, pillars visible Class II: Soft palate, uvula, fauces visible Class III: Soft palate, base of uvula visible Class IV: Only hard plate visible Mallampati Classification: Class II Surgeon: Ethan Diagnosis: R Hip Pain Surgical Procedure: R Hip Hemiarthroplasty Anesthesia History: none Family History: no anesthesia problems Allergies: Coded Allergies: NO KNOWN ALLERGIES (Verified Allergy, Unknown, 10/11/19) Medications: see eMAR Patient NPO?: Yes NPO Date: Oct 12, 2019 NPO Time: 0000 Past Medical History Cardiovascular: Reports: HTN, CAD - Angina, other - HL Gastrointestinal/Genitourinary: Reports: GERD, ESRD, other - Hepatitis C Neurologic/Psychiatric: Reports: depression/anxiety Endocrine: Reports: DM Hematology/Immune: Reports: anemia PSxH Narrative: R Knee SX Anesthesia Pre-op Phys. Exam Physician Exam Last Vital Signs Date Time Temp Pulse Resp B/P (MAP) Pulse Ox O2 Delivery O2 Flow Rate FiO2 10/12/19 09:49 144/90 10/12/19 09:00 Room Air 10/12/19 08:00 99.1 17 98 10/12/19 00:00 74 Constitutional: NAD Neurologic: CN 2-12 intact Cardiovascular: RRR Respiratory: CTA Gastrointestinal: S/NT/ND Airway Exam Mallampati Score: Class II MO: full ROM: limited Teeth: missing Anesthesia Pre-op A/P Labs Hematology Test 10/11/19 13:30 10/12/19 06:20 White Blood Count 8.5 K/UL (4.8-10.8) 6.5 K/UL (4.8-10.8) Red Blood Count 3.83 M/UL (4.20-5.40) L 3.40 M/UL (4.20-5.40) L Hemoglobin 11.9 G/DL (12.0-16.0) L 10.8 G/DL (12.0-16.0) L Hematocrit 34.5 % (37.0-47.0) L 30.6 % (37.0-47.0) L Mean Corpuscular Volume 90 FL (80-99) 90 FL (80-99) Mean Corpuscular Hemoglobin 31.0 PG (27.0-31.0) 31.7 PG (27.0-31.0) H Mean Corpuscular Hemoglobin Concent 34.5 G/DL (32.0-36.0) 35.2 G/DL (32.0-36.0) Red Cell Distribution Width 14.9 % (11.6-14.8) H 14.9 % (11.6-14.8) H Platelet Count 231 K/UL (150-450) 181 K/UL (150-450) Mean Platelet Volume 5.2 FL (6.5-10.1) L 5.5 FL (6.5-10.1) L Neutrophils (%) (Auto) 56.8 % (45.0-75.0) 60.6 % (45.0-75.0) Lymphocytes (%) (Auto) 34.9 % (20.0-45.0) 26.3 % (20.0-45.0) Monocytes (%) (Auto) 5.0 % (1.0-10.0) 7.9 % (1.0-10.0) Eosinophils (%) (Auto) 2.2 % (0.0-3.0) 4.7 % (0.0-3.0) H Basophils (%) (Auto) 1.2 % (0.0-2.0) 0.5 % (0.0-2.0) Coagulation Test 10/11/19 13:30 Prothrombin Time 9.7 SEC (9.30-11.50) Prothromb Time International Ratio 0.9 (0.9-1.1) Activated Partial Thromboplast Time 21 SEC (23-33) L Chemistry Test 10/11/19 13:30 10/12/19 06:20 Sodium Level 139 MMOL/L (136-145) 135 MMOL/L (136-145) L Potassium Level 4.6 MMOL/L (3.5-5.1) 3.7 MMOL/L (3.5-5.1) Chloride Level 103 MMOL/L (98-107) 102 MMOL/L (98-107) Carbon Dioxide Level 22 MMOL/L (21-32) 24 MMOL/L (21-32) Anion Gap 14 mmol/L (5-15) 9 mmol/L (5-15) Blood Urea Nitrogen 25 mg/dL (7-18) H 19 mg/dL (7-18) H Creatinine 1.1 MG/DL (0.55-1.30) 0.7 MG/DL (0.55-1.30) Estimat Glomerular Filtration Rate 48.5 mL/min (>60) > 60 mL/min (>60) Glucose Level 263 MG/DL (74-106) H 226 MG/DL (74-106) H Calcium Level 9.4 MG/DL (8.5-10.1) 8.8 MG/DL (8.5-10.1) Total Bilirubin 0.5 MG/DL (0.2-1.0) Aspartate Amino Transf (AST/SGOT) 23 U/L (15-37) Alanine Aminotransferase (ALT/SGPT) 32 U/L (12-78) Alkaline Phosphatase 63 U/L (46-116) Total Protein 8.5 G/DL (6.4-8.2) H Albumin 3.7 G/DL (3.4-5.0) Globulin 4.8 g/dL Albumin/Globulin Ratio 0.8 (1.0-2.7) L Vitamin D 25-Hydroxy Pending 25-Hydroxy Vitamin D2 Pending 25-Hydroxy Vitamin D3 Pending Risk Assessment & Plan Assessment: ASA 3 Plan: Spinal with GA Status Change Before Surgery: No Pre-Antibiotics Dru Grams Ancef IV Given Within 1 Hr of Incision: Yes Time Given: 12:21 Alexander Antunez MD Oct 12, 2019 11:57
[2019-10-12] MEDS ORDERED: Metoclopramide 10mg/2ml Inj IVP PRN (12:00)
[2019-10-12] MEDS ORDERED: Hydromorphone 0.5mg/0.5ml inj IVP PRN (12:00)
[2019-10-12] MEDS ORDERED: Tranexamic Acid 1,000 MG in NS 65 ML IV SCH (12:00)
[2019-10-12] MEDS ORDERED: oxyCODONE HCL/Acetaminophen 5/325mg ORAL PRN (12:00)
[2019-10-12] MEDS ORDERED: Atropine Sulfate 0.4mg/ml inj IVP PRN (12:00)
[2019-10-12] MEDS ORDERED: DiphenhydrAMINE 50mg/ml Inj IVP PRN (12:00)
[2019-10-12] MEDS ORDERED: Ketorolac 30mg Inj IV PRN ×2 (12:00)
[2019-10-12] MEDS ORDERED: fentaNYL 100 mcg/2 mL IV PRN (12:00)
[2019-10-12] MEDS ORDERED: Midazolam 2mg/2ml Inj IVP PRN (12:00)
[2019-10-12] MEDS ORDERED: Labetalol 5mg/ml 20ml vial IV PRN (12:00)
[2019-10-12] MEDS ORDERED: HYDROcodone/Acetamin 7.5/325 tab ORAL PRN (12:00)
[2019-10-12] MEDS ORDERED: HYDROcodone/Acetamin 5/325 tab ORAL PRN (12:00)
[2019-10-12] MEDS ORDERED: LORazepam Inj 2mg/ml 1ml IV PRN (12:00)
[2019-10-12] MEDS ORDERED: cloNIDine 1000mcg/10ml inj ONE (12:03)
[2019-10-12] MEDS ORDERED: Bupivacaine 0.5% Inj 30 ml vial INJ ONE (12:03)
--- NOTE | 2019-10-12 12:16 | NUR ---
NURSE NOTES: Patient transferred down to surgery for scheduled procedure in stable condition.
[2019-10-12] MEDS ORDERED: Propofol 200mg/20ml IV ONE (12:24)
[2019-10-12] MEDS ORDERED: Lidocaine 1% Plain 30 ml INJ ONE (12:24)
[2019-10-12] MEDS ORDERED: Sodium Chloride 10ml vial INJ ONE (12:24)
--- NOTE | 2019-10-12 12:29 | Pre-Procedure Note/Attestation ---
Pre-Procedure Note/Attestation Complete Prior to Procedure Planned Procedure: right Procedure Narrative: Right hip hemiarthroplasty Indications for Procedure Pre-Operative Diagnosis: Right hip displaced femoral neck fracture Attestation I attest that I discussed the nature of the procedure; its benefits; risks and complications; and alternatives (and the risks and benefits of such alternatives ), prior to the procedure, with the patient (or the patient's legal quality assurance representative). I attest that, if there was a reasonable possibility of needing a blood transfusion, the patient (or the patient's legal quality assurance representative) was given the [facility] standardized written summary, pursuant to the Corbin Sheldon Blood Safety Act ([place] Health and Safety Code # 1645, as amended). I attest that I re-evaluated the patient just prior to the surgery and that there has been no change in the patient's H&P, except as documented below: Caden Long MD Oct 12, 2019 12:29
[2019-10-12] MEDS ORDERED: D5 1/2NS w/KCl 20mEq 1,000 ML IV SCH (12:33)
[2019-10-12] MEDS ORDERED: Sterile Water Irrig 1000ml IRRIG ONE (12:36)
[2019-10-12] MEDS ORDERED: NS Irrig 2000ml IRRIG ONE (12:36)
[2019-10-12] MEDS ORDERED: NS Irrig 1000ml ONE (12:36)
[2019-10-12] MEDS ORDERED: Metoprolol Tartrate 5mg/5ml Inj ONE (12:36)
[2019-10-12] MEDS ORDERED: Milk of Magnesia 30ml Ud ORAL PRN (12:45)
[2019-10-12] MEDS ORDERED: oxyCODONE 5mg IR tab ORAL PRN (12:45)
[2019-10-12] MEDS ORDERED: Docusate 100mg cap ORAL SCH (13:00)
[2019-10-12] MEDS ORDERED: ePHEDrine 50mg/ml Inj ONE (13:03)
--- NOTE | 2019-10-12 14:44 | Brief Operative Note ---
Immediate Post Operative Note Operative Note Pre-op Diagnosis: Right hip displaced femoral neck fracture Procedure: Right hip hemiarthroplasty Post-op Diagnosis: same as pre-op Findings: consistent w/pre-op dx studies Surgeon: Ethan Anesthesiologist: Tulio Anesthesia: regional, MAC Specimen: yes Complications: none Condition: stable Fluids: 100 ml Estimated Blood Loss: minimal Drains: none Implant(s) used?: Yes Caden Long MD Oct 12, 2019 14:44
--- NOTE | 2019-10-12 14:48 | Immediate Post-Op Evaluation ---
Immediate Post-Op Evalulation Immediate Post-Op Evalulation Procedure: R Hip Hemiarthroplasty Date of Evaluation: Oct 12, 2019 Time of Evaluation: 14:59 IV Fluids: 600 NS Blood Products: 0 Estimated Blood Loss: 50 Urinary Output: 100 Blood Pressure Systolic: 134 Blood Pressure Diastolic: 81 Pulse Rate: 96 Respiratory Rate: 16 O2 Sat by Pulse Oximetry: 100 Temperature (Fahrenheit): 99.6 Pain Score (1-10): 0 Nausea: No Vomiting: No Complications 0 Patient Status: awake, reacts, patent, none Hydration Status: adequate Dru Grams Ancef IV Given Within 1 Hr of Incision: Yes Time Given: 12:21 Alexander Antunez MD Oct 12, 2019 14:48
--- NOTE | 2019-10-12 14:49 | 48 Hour Post Anesthesia Eval ---
Post Anesthesia Evaluation Procedure: R Hip Hemiarthroplasty Date of Evaluation: Oct 12, 2019 Time of Evaluation: 17:13 Blood Pressure Systolic: 167 0: 91 Pulse Rate: 97 Respiratory Rate: 18 Temperature (Fahrenheit): 98.6 O2 Sat by Pulse Oximetry: 99 Airway: patent Nausea: No Vomiting: No Pain Intensity: 1 Hydration Status: adequate Cardiopulmonary Status: Stable Mental Status/LOC: patient returned to baseline Follow-up Care/Observations: 0 Post-Anesthesia Complications: 0 Follow-up care needed: N/A Alexander Antunez MD Oct 12, 2019 14:49
--- NOTE | 2019-10-12 15:45 | NUR ---
NURSE NOTES: Patient returned from recovery room s/p right hip hemiarthroplasty. Patient is arousable, not in distress, does not complain of pain. Has sensation up until waist, neurochecks and circulation checks ordered. Noted dry dressing and tegaderm over right hip, no bleeding or redness noted. Patient has PIV on left hand, hooked D5 1/2 NS + 20meqs KCL at 75ml/hr. Patient has some nausea. Paged Dr. Soto and received orders for Zofran 4mg IV prn q4hrs. Bed low and locked, siderails up x 2, call light within reach, will continue to monitor.
[2019-10-12] MEDS: D5 1/2NS w/KCl 20mEq 1,000 ML IV SCH (16:13)
--- NOTE | 2019-10-12 16:36 | General Progress Note ---
Assessment/Plan Assessment/Plan: 74-year-old female with PMH of osteoarthritis, IDDM, HTN who presents with right hip pain after ground-level fall. #Right Femoral Neck Fracture #Ground Level Fall -CT hip w/evidence of Rt femoral neck fx -fall precautions -pain control -PT/OT -check vit d levels -Ortho consulted, Dr. Long, plan for OR today -NPO, NS Pre-op Eval -mets>4, EKG NSR, CXR negatve for acute process, pt with PMH IDDM, HTN, OA, no h /o strokes or NV. Previous surgeries with no issues with anesthesia. -Given the assessment above, pt is at intermediate risk for a low risk non- cardiac surgery. #IDDM -holding home glipizide -cont. home insulin, detemir 10 qhs -ISS/accuchecks qAC/HS #HTN cont. home meds, lisinopril #6mm Left Base Pulmonary Nodule -Seen on CT Chest -stable/unchanged from previous, likely benign -cont. to monitor DVT PPx: SCDs Time spent on encounter: 70 mins, 40 mins spent on pt counseling, coordination of care. Discussed case w/ER physician, Ortho and ORTHOTICS TECHNICIAN. Time of note doesn't reflect time of encounter. Subjective Date patient seen: Oct 12, 2019 Allergies: Coded Allergies: NO KNOWN ALLERGIES (Verified Allergy, Unknown, 10/11/19) Subjective Afeb and HDS Pain poorly controlled Hb & renal fxn relatively stable NPO for OR today 12 pt ros neg except as above Objective Last 24 Hour Vital Signs Date Time Temp Pulse Resp B/P (MAP) Pulse Ox O2 Delivery O2 Flow Rate FiO2 10/12/19 15:30 97.8 102 23 133/78 100 Nasal Cannula 3 10/12/19 15:15 100 16 116/75 100 Nasal Cannula 3 10/12/19 15:05 99 15 110/60 100 Nasal Cannula 3 10/12/19 14:55 98 15 112/57 100 Simple Mask 6 10/12/19 14:50 99 12 141/107 100 Simple Mask 6 10/12/19 14:49 97 18 99 10/12/19 14:48 96 16 100 10/12/19 14:45 99.6 97 21 134/78 100 Simple Mask 6 10/12/19 12:00 99.1 77 17 147/91 (109) 95 10/12/19 09:49 144/90 10/12/19 09:00 Room Air 10/12/19 08:00 99.1 17 144/90 (108) 98 10/12/19 04:00 98.4 18 102/66 (78) 97 10/12/19 00:00 98.6 74 18 104/65 (78) 97 10/11/19 21:00 Room Air 10/11/19 21:00 Room Air 10/11/19 20:00 98.3 70 18 100/61 (74) 97 10/11/19 17:47 Room Air 10/11/19 17:38 Room Air 10/11/19 16:45 97.2 94 17 138/72 96 Room Air Intake and Output 10/11/19 10/12/19 19:00 07:00 Intake Total 315 ml Output Total 400 ml Balance -85 ml Intake Oral 240 ml IV Total 75 ml Output Urine Total 400 ml # Voids 2 # Bowel Movements 2 Laboratory Tests 10/12/19 06:20: White Blood Count 6.5, Red Blood Count 3.40L, Hemoglobin 10.8L, Hematocrit 30.6L , Mean Corpuscular Volume 90, Mean Corpuscular Hemoglobin 31.7H, Mean Corpuscular Hemoglobin Concent 35.2, Red Cell Distribution Width 14.9H, Platelet Count 181, Mean Platelet Volume 5.5L, Neutrophils (%) (Auto) 60.6, Lymphocytes (%) (Auto) 26.3, Monocytes (%) (Auto) 7.9, Eosinophils (%) (Auto) 4.7H, Basophils (%) (Auto) 0.5, Sodium Level 135L, Potassium Level 3.7, Chloride Level 102, Carbon Dioxide Level 24, Anion Gap 9, Blood Urea Nitrogen 19H, Creatinine 0.7, Estimat Glomerular Filtration Rate > 60, Glucose Level 226H , Calcium Level 8.8, Vitamin D 25-Hydroxy [Pending], 25-Hydroxy Vitamin D2 [ Pending], 25-Hydroxy Vitamin D3 [Pending] Height (Feet): 5 Height (Inches): 3.00 Weight (Pounds): 159 Objective General: NAD, A&O x 3, laying comfortably in bed HEENT: NCAT, EOMi, MMM CV: RRR, no murmurs, rubs, or gallops Pulm: CTAB, No wheezes, rhonchi, or rales, no accessory muscle usage or conversational dyspnea GI: Soft, nontender, nondistended, bowel sounds present Ext: No lower extremity edema bilaterally Skin: no rashes lesions or ulcers Msk: Joints symmetrical in upper extremity and lower extremity bilaterally, no joint swelling. Neuro: CN 2-12 grossly intact bilaterally, no focal signs. Ron Soto MD Oct 12, 2019 16:36
--- NOTE | 2019-10-12 19:12 | NUR ---
HAND-OFF: Report given to Jey CORONA. Endorsed all post-op orders.
--- NOTE | 2019-10-12 19:30 | NUR ---
NURSE NOTES: pt c/o pain right hip, morphine prn given will monitor effectiveness. call light within reach. no distress. will monitor.
[2019-10-12] MEDS: Morphine Sulfate 4mg/ml Inj (IV USE ONLY) IVP PRN (19:37)
--- NOTE | 2019-10-12 20:00 | NUR ---
NURSE NOTES: per pt, morphine is effective in treating pain. pt comfortable, iv fluids running as ordered, call light within reach. will monitor.
--- NOTE | 2019-10-12 20:00 | Consultation ---
DATE OF CONSULTATION: 10/12/2019 ORTHOPEDIC CONSULTATION CONSULTING PHYSICIAN: Caden Long MD. REQUESTING PHYSICIAN: Yue Salamanca MD. DIAGNOSIS: Right displaced femoral neck fracture. HISTORY OF PRESENT ILLNESS: This is a 74-year-old woman with multiple medical comorbidities, slipped and fell. She had no loss of consciousness. She was not able to bear weight. She was found to have a displaced femoral neck fracture. Although she has a history of arthritis, she has not had any significant symptoms in the right hip appreciating her slip and fall. REVIEW OF SYSTEMS: She has a history of osteoarthritis, diabetes, and hypertension. She has had no recent influenza virus symptoms. PHYSICAL EXAMINATION: GENERAL: She is well appearing and in minimal distress. MUSCULOSKELETAL: No provocative testing of the right lower extremity was performed for the patient's comfort. Gross neurovascular examination was intact of the right lower extremity. RADIOGRAPHS: AP pelvis and right hip reveal a displaced femoral neck fracture. There were mild arthritic changes noted in the hip joint. ASSESSMENT AND PLAN: The patient slipped and fell and sustained a femoral neck fracture on the right side. I have recommended hip hemiarthroplasty given that she has had no significant arthritic symptoms preoperatively related to mild arthritis noted on x-rays. She understands all associated risks. I had a detailed discussion with her daughter, Destiny Pedroza at [phone]. All of her questions were answered. All risks and benefits were reviewed. Postoperatively, the patient will require at least 1 month of DVT prophylaxis postoperatively to prevent blood clots. We will proceed to the operating room when available. Thank you for the opportunity to consult. Caden Long M.D. DR: Shira JOB#: [id number] CC: MARCE
[2019-10-12] MEDS: ceFAZolin sod 2 GM in D5W 110 ML IV SCH ×2 (20:13→20:17)
[2019-10-12] MEDS: Levemir Flexpen SUBQ SCH (20:15)
--- NOTE | 2019-10-12 23:16 | NUR ---
NURSE NOTES: no hematuria, molina patent intact will monitor.
[2019-10-13] VITALS: BP 119/69
[2019-10-13] MEDS: Morphine Sulfate 4mg/ml Inj (IV USE ONLY) IVP PRN ×3 (00:15→16:35)
--- NOTE | 2019-10-13 02:30 | Operative Note - Dictated ---
DATE OF OPERATION: 10/12/2019 SURGEON: Caden Long MD. SITE PROMOTION AGENT: None. ANESTHESIA: General plus regional. COMPLICATIONS: None. ANTIBIOTICS: Ancef. PREOPERATIVE DIAGNOSIS: Right femoral neck fracture. POSTOPERATIVE DIAGNOSIS: Right femoral neck fracture. PROCEDURE PERFORMED: Right hip hemiarthroplasty using a MicroPort Profemur Z size 4 varus 8-degree femoral stem with long neck, a MicroPort Lineage/Transcend 28 mm/-3.5 mm short femoral head, and a 42 mm Gladiator Bipolar Shell. BACKGROUND: The patient slipped and fell. She sustained the above injury. All risks, benefits, and alternatives to surgical intervention were discussed in great detail. Risks included, but were not limited to bleeding, infection, neurovascular injury, need for additional surgical intervention, failure of pain relief, arthrofibrosis, complications of anesthesia, blood clots, stroke, heart attack, and potentially . She understood these risks, amongst others including leg length discrepancy, rotational deformity, fracture, prolonged need for blood thinner, and loss of contortion, amongst others, and consent was signed. PROCEDURE IN DETAIL: The patient was brought into the operating room, placed supine on the operating table. Regional anesthesia was induced and two grams of Ancef administered. She was placed in the lateral decubitus position with the right hip joint towards the ceiling. After correct hip identification for surgical site, it was prepped and draped in standard sterile fashion. A posterior incision was created and hemostasis was maintained using electrocautery. Blunt dissection was carried down to the conjoined tendon, which was readily identified. It was detached for later reattachment. A T-shaped capsular incision was created and hematoma cleared. A revision osteotomy was performed and the head removed. All debris was cleared from the acetabulum. The head measured to a size 42. Attention was then turned to the femur. Using a box osteotome to gain a lateral starting point, after appropriate reaming and broaching, there was found to be appropriate fit and fill with a size 4 Profemur. Trial reduction using a short head with a long neck revealed excellent stability and clinically equal leg lengths. There was no purging or dislocation at 90 degrees of flexion, 90 degrees of flexion with 85 degrees internal rotation, position of sleep, position of sleep with 85 degrees internal rotation, extension, and extension with external rotation and posterior pressure on the buttock. The real components were fitted into position and radiographs confirmed appropriate offset and skeletal leg lengths as well as no complication noted of the insertion of the femoral stem. Copious irrigation was utilized following the real implants being fitted. Finger sweep revealed no retained foreign body or debris. The capsule was reapproximated using #1 Vicryl and more superficial tissues with 0 and 2-0 Vicryl. The conjoined tendon was reapproximated to the abductor tendon. Monocryl was used in a subcuticular fashion for skin. Steri-Strips were used over Mastisol. Dry sterile dressing was applied. She tolerated the procedures well. When placed supine, leg lengths were equal. There were no complications. I attest that I performed the entire operation. She was transferred to recovery in good condition. Caden Long M.D. DR: Shira JOB#: [id number] CC:
[2019-10-13 04:00] VITALS: BP 111/69
[2019-10-13] MEDS: NovoLOG Insulin Flexpen SUBQ SCH ×4 (06:05→21:00)
--- NOTE | 2019-10-13 07:00 | NUR ---
HAND-OFF: Report given to [].
--- NOTE | 2019-10-13 07:00 | NUR ---
HAND-OFF: Report given to YOLIS CORONA.
[2019-10-13 07:12] LABS: BASOPHILS % (AUTO) 0.7 % (0.0-2.0); EOSINOPHILS % (AUTO) 2.1 % (0.0-3.0); HEMATOCRIT 24.8 % (37.0-47.0); HEMOGLOBIN 8.9 G/DL (12.0-16.0); MEAN CORPUSCULAR VOLUME 90 FL (80-99); MONOCYTES % (AUTO) 11.5 % (1.0-10.0); NEUTROPHILS % (AUTO) 63.7 % (45.0-75.0); PLATELET COUNT 129 K/UL (150-450); RED BLOOD COUNT 2.77 M/UL (4.20-5.40); RED CELL DISTRIBUTION WIDTH 15.2 % (11.6-14.8); WHITE BLOOD COUNT 6.7 K/UL (4.8-10.8)
--- NOTE | 2019-10-13 07:13 | NUR ---
NURSE NOTES: Report received from Jey CORONA. Patient seen on rounds, AxOx4, some discomfort noted on right hip exacerbated by position changes. SCD on. IV morphine given as per RN. Patient is not in distress, tolerating room air. PIV on left forearm patent and infusing IVF as ordered. Burns cath secure and draining yellow urine output. Bed is low and locked, siderails up x2, call light within reach, instructed to call nurse for assistance. Will continue to monitor.
[2019-10-13] MEDS: D5 1/2NS w/KCl 20mEq 1,000 ML IV SCH ×3 (07:20→23:01)
[2019-10-13 07:35] LABS: ANION GAP 8 mmol/L (5-15); BLOOD UREA NITROGEN 12 mg/dL (7-18); CALCIUM 8.2 MG/DL (8.5-10.1); CARBON DIOXIDE 23 MMOL/L (21-32); CHLORIDE 100 MMOL/L (98-107); CREATININE 0.8 MG/DL (0.55-1.30); POTASSIUM 4.3 MMOL/L (3.5-5.1); SODIUM 131 MMOL/L (136-145)
[2019-10-13 08:00] VITALS: BP 142/88
--- NOTE | 2019-10-13 08:00 | NUR ---
NURSE NOTES: Dr. Soto on-call for [facility] saw patient this am. Informed of CBC results from this am. No new orders at this time.
--- NOTE | 2019-10-13 08:31 | Orthopedic Progress Note ---
Orthopedic - Progress Note Subjective Symptoms: c/o post-op hip pain Objective Last 24 Hour Vital Signs Date Time Temp Pulse Resp B/P (MAP) Pulse Ox O2 Delivery O2 Flow Rate FiO2 10/13/19 08:00 98.5 101 19 142/88 (106) 98 10/13/19 04:00 97.9 108 17 111/69 (83) 96 10/13/19 00:45 97.9 10/13/19 00:00 97.9 108 17 119/69 (86) 96 10/12/19 21:00 Room Air 10/12/19 20:00 97.9 105 17 126/68 (87) 96 10/12/19 16:00 97.9 107 17 125/74 (91) 96 10/12/19 15:30 97.8 102 23 133/78 100 Nasal Cannula 3 10/12/19 15:15 100 16 116/75 100 Nasal Cannula 3 10/12/19 15:05 99 15 110/60 100 Nasal Cannula 3 10/12/19 14:55 98 15 112/57 100 Simple Mask 6 10/12/19 14:50 99 12 141/107 100 Simple Mask 6 10/12/19 14:49 97 18 99 10/12/19 14:48 96 16 100 10/12/19 14:45 99.6 97 21 134/78 100 Simple Mask 6 10/12/19 12:00 99.1 77 17 147/91 (109) 95 10/12/19 09:49 144/90 10/12/19 09:00 Room Air Intake and Output 10/12/19 10/13/19 19:00 07:00 Intake Total 1350 ml 595 ml Output Total 200 ml 1000 ml Balance 1150 ml -405 ml IV Total 1350 ml 595 ml Output Urine Total 150 ml 1000 ml Estimated Blood Loss 50 ml Laboratory Tests Test 10/13/19 06:10 White Blood Count 6.7 K/UL (4.8-10.8) Red Blood Count 2.77 M/UL (4.20-5.40) L Hemoglobin 8.9 G/DL (12.0-16.0) L Hematocrit 24.8 % (37.0-47.0) L Mean Corpuscular Volume 90 FL (80-99) Mean Corpuscular Hemoglobin 32.1 PG (27.0-31.0) H Mean Corpuscular Hemoglobin Concent 35.9 G/DL (32.0-36.0) Red Cell Distribution Width 15.2 % (11.6-14.8) H Platelet Count 129 K/UL (150-450) L Mean Platelet Volume 5.8 FL (6.5-10.1) L Neutrophils (%) (Auto) 63.7 % (45.0-75.0) Lymphocytes (%) (Auto) 22.0 % (20.0-45.0) Monocytes (%) (Auto) 11.5 % (1.0-10.0) H Eosinophils (%) (Auto) 2.1 % (0.0-3.0) Basophils (%) (Auto) 0.7 % (0.0-2.0) Sodium Level 131 MMOL/L (136-145) L Potassium Level 4.3 MMOL/L (3.5-5.1) Chloride Level 100 MMOL/L (98-107) Carbon Dioxide Level 23 MMOL/L (21-32) Anion Gap 8 mmol/L (5-15) Blood Urea Nitrogen 12 mg/dL (7-18) Creatinine 0.8 MG/DL (0.55-1.30) Estimat Glomerular Filtration Rate > 60 mL/min (>60) Glucose Level 343 MG/DL (74-106) #H Calcium Level 8.2 MG/DL (8.5-10.1) L Wound: clean, dry Drains: none Neuro Status: normal Vascular Status: normal Assessment Procedure Performed Right hip hemiarthroplasty Plan Plan: PT, pain management, discharge plan Additional Comments Moderate postoperative pain as anticipated. Equal leg lengths on exam. Postop x -rays show right hip implant with no evidence of complication. May be WBAT and plan for discharge to home or to facility. Caden Long MD Oct 13, 2019 08:31
[2019-10-13] MEDS: Lisinopril 20mg tab ORAL SCH (08:37)
[2019-10-13] MEDS: Docusate 100mg cap ORAL SCH ×5 (08:37→21:00)
[2019-10-13 12:00] VITALS: BP 101/53
[2019-10-13] MEDS: Morphine Sulfate 2mg/ml Inj(IV/IM USE ONLY) IVP PRN ×2 (12:22→21:47)
--- NOTE | 2019-10-13 14:05 | General Progress Note ---
Assessment/Plan Assessment/Plan: 74-year-old female with PMH of osteoarthritis, IDDM, HTN who presents with right hip pain after ground-level fall. #Right Femoral Neck Fracture, s/p R katherine arthroplasty 10/12/19 #Ground Level Fall -CT hip w/evidence of Rt femoral neck fx -Ortho consulted, Dr. Long, s/p R katherine arthroplasty 10/12/19 -WBAT, PT/OT evals -Wound mgt per ortho -Pain control & supportive care -IS for pulm hygine -Start DVT PPx w/ Lovenox 40 sq daily POD 1, will plan on apixaban on dc x 21 days #Anemia due to acute blood loss, post op (expected) - no e/o active bleeding - trend cbc - transfuse for Hb < 7 #Thrombocytopenia - ~300 -> 150 over first 35 hrs, has not received any hep products - trend cbc #IDDM -holding home glipizide -cont. home insulin, detemir 10 qhs -ISS/accuchecks qAC/HS #HTN cont. home meds, lisinopril #6mm Left Base Pulmonary Nodule -Seen on CT Chest -stable/unchanged from previous, likely benign -cont. to monitor DVT PPx: SCDs Time spent on encounter: 40 mins, 21 mins spent on pt counseling, coordination of care. Discussed case w/ Ortho and RN at bedside. Time of note doesn't reflect time of encounter. Subjective Date patient seen: Oct 13, 2019 Allergies: Coded Allergies: NO KNOWN ALLERGIES (Verified Allergy, Unknown, 10/11/19) Subjective POD 1 Doing well Pain controlled Hb dip c/w op losses Na 131, post op state Plt 321 -> 129 over 35 hrs, no hep products given Has not yet ambulated 12 pt ros neg except as above Objective Last 24 Hour Vital Signs Date Time Temp Pulse Resp B/P (MAP) Pulse Ox O2 Delivery O2 Flow Rate FiO2 10/13/19 12:00 98.1 61 18 101/53 (69) 98 10/13/19 09:00 Room Air 10/13/19 08:37 142/88 10/13/19 08:00 98.5 101 19 142/88 (106) 98 10/13/19 04:00 97.9 108 17 111/69 (83) 96 10/13/19 00:45 97.9 10/13/19 00:00 97.9 108 17 119/69 (86) 96 10/12/19 21:00 Room Air 10/12/19 20:00 97.9 105 17 126/68 (87) 96 10/12/19 16:00 97.9 107 17 125/74 (91) 96 10/12/19 15:30 97.8 102 23 133/78 100 Nasal Cannula 3 10/12/19 15:15 100 16 116/75 100 Nasal Cannula 3 10/12/19 15:05 99 15 110/60 100 Nasal Cannula 3 10/12/19 14:55 98 15 112/57 100 Simple Mask 6 10/12/19 14:50 99 12 141/107 100 Simple Mask 6 10/12/19 14:49 97 18 99 10/12/19 14:48 96 16 100 10/12/19 14:45 99.6 97 21 134/78 100 Simple Mask 6 Intake and Output 10/12/19 10/13/19 19:00 07:00 Intake Total 1350 ml 595 ml Output Total 200 ml 1000 ml Balance 1150 ml -405 ml IV Total 1350 ml 595 ml Output Urine Total 150 ml 1000 ml Estimated Blood Loss 50 ml Laboratory Tests 10/13/19 06:10: White Blood Count 6.7, Red Blood Count 2.77L, Hemoglobin 8.9L, Hematocrit 24.8L , Mean Corpuscular Volume 90, Mean Corpuscular Hemoglobin 32.1H, Mean Corpuscular Hemoglobin Concent 35.9, Red Cell Distribution Width 15.2H, Platelet Count 129L, Mean Platelet Volume 5.8L, Neutrophils (%) (Auto) 63.7, Lymphocytes (%) (Auto) 22.0, Monocytes (%) (Auto) 11.5H, Eosinophils (%) (Auto) 2.1, Basophils (%) (Auto) 0.7, Sodium Level 131L, Potassium Level 4.3, Chloride Level 100, Carbon Dioxide Level 23, Anion Gap 8, Blood Urea Nitrogen 12, Creatinine 0.8, Estimat Glomerular Filtration Rate > 60, Glucose Level 343#H, Calcium Level 8.2L Height (Feet): 5 Height (Inches): 3.00 Weight (Pounds): 159 Objective General: NAD, A&O x 3, laying comfortably in bed HEENT: NCAT, EOMi, MMM CV: RRR, no murmurs, rubs, or gallops Pulm: CTAB, No wheezes, rhonchi, or rales, no accessory muscle usage or conversational dyspnea GI: Soft, nontender, nondistended, bowel sounds present Ext: No lower extremity edema bilaterally Skin: no rashes lesions or ulcers Msk: Joints symmetrical in upper extremity and lower extremity bilaterally, no joint swelling. Neuro: CN 2-12 grossly intact bilaterally, no focal signs. Ron Soto MD Oct 13, 2019 14:05
[2019-10-13 16:00] VITALS: BP 131/73
--- NOTE | 2019-10-13 17:25 | NUR ---
PT Note PT monica completed, treatment initiated. Patient c/o severe pain on the right hip, even after taking pain meds. Patient needs PT to increase her muscle strength, ROM and decrease pain to improve her functional mobility. Addendum: 10/13/19 at 1726 by ISIDORO PEREZ PT Amended: Links added.
--- NOTE | 2019-10-13 19:30 | NUR ---
HAND-OFF: Report given to Manjinder CORONA.
[2019-10-13 20:00] VITALS: BP 145/88
[2019-10-13] MEDS: Levemir Flexpen SUBQ SCH (21:00)
[2019-10-14] VITALS: BP 140/76
--- NOTE | 2019-10-14 01:00 | NUR ---
NURSE NOTES: Burns removed. Patient is awake, alert. Call light is at bedside.
[2019-10-14] MEDS: Morphine Sulfate 4mg/ml Inj (IV USE ONLY) IVP PRN ×2 (01:42→06:02)
--- NOTE | 2019-10-14 03:30 | NUR ---
NURSE NOTES: Patient refused Percocet, wasted and witnessed. gave tylenol instead.
[2019-10-14 04:00] VITALS: BP 126/68
[2019-10-14] MEDS: NovoLOG Insulin Flexpen SUBQ SCH ×4 (06:03→22:10)
--- NOTE | 2019-10-14 06:59 | NUR ---
HAND-OFF: Report given to Calos Gray.
--- NOTE | 2019-10-14 07:27 | NUR ---
NURSE NOTES: Report received from Manjinder CORONA. Patient seen on rounds, AxOx4, some discomfort noted on right hip exacerbated by position changes. SCD on. IV morphine given as per RN at 0600H. Patient is not in distress, tolerating room air. PIV on left forearm patent and infusing IVF as ordered. Burns cath removed per RN, no urine output. Bed is low and locked, siderails up x2, call light within reach, instructed to call nurse for assistance. Will continue to monitor.
[2019-10-14 08:00] VITALS: BP 129/82
[2019-10-14 08:11] LABS: HEMATOCRIT 22.7 % (37.0-47.0); HEMOGLOBIN 7.9 G/DL (12.0-16.0); MEAN CORPUSCULAR VOLUME 91 FL (80-99); PLATELET COUNT 143 K/UL (150-450); RED BLOOD COUNT 2.49 M/UL (4.20-5.40); RED CELL DISTRIBUTION WIDTH 15.1 % (11.6-14.8); WHITE BLOOD COUNT 7.5 K/UL (4.8-10.8)
[2019-10-14] MEDS: Docusate 100mg cap ORAL SCH ×4 (08:30→17:11)
[2019-10-14 08:31] LABS: ANION GAP 7 mmol/L (5-15); BLOOD UREA NITROGEN 10 mg/dL (7-18); CALCIUM 8.2 MG/DL (8.5-10.1); CARBON DIOXIDE 23 MMOL/L (21-32); CHLORIDE 98 MMOL/L (98-107); POTASSIUM 4.1 MMOL/L (3.5-5.1); SODIUM 128 MMOL/L (136-145)
[2019-10-14] MEDS: Lisinopril 20mg tab ORAL SCH (08:31)
--- NOTE | 2019-10-14 08:44 | Diagnostic Imaging Report ---
Indication: Intraoperative imaging Technique: One view of the pelvis Comparison: 10/11/2019 Findings: Intraoperative images demonstrate a right hip arthroplasty prosthesis in good position. Impression: Intraoperative imaging as described
--- NOTE | 2019-10-14 08:45 | Diagnostic Imaging Report ---
Indication: Postoperative Technique: One view of the pelvis Comparison: 45 minutes earlier Findings: There is a right hip hemiarthroplasty prosthesis in good position. Retained air from the surgical exposure seen in the soft tissues. Impression: Postoperative right hip. No unusual features
--- NOTE | 2019-10-14 09:09 | General Progress Note ---
Assessment/Plan Assessment/Plan: 74-year-old female with PMH of osteoarthritis, IDDM, HTN who presents with right hip pain after ground-level fall. #Right Femoral Neck Fracture, s/p R katherine arthroplasty 10/12/19 #Ground Level Fall -CT hip w/evidence of Rt femoral neck fx -Ortho consulted, Dr. Long, s/p R katherine arthroplasty 10/12/19 -WBAT, PT/OT evals -Wound mgt per ortho -Pain control & supportive care -IS for pulm hygiene -Start DVT PPx w/ Lovenox 40 sq daily POD 1, will plan on apixaban on dc x 21 days #Anemia due to acute blood loss, post op (expected) - no e/o active bleeding - trend cbc - transfuse for Hb < 7 #Thrombocytopenia - ~300 -> 150 over first 35 hrs, has not received any hep products - trend cbc #Hyponatremia -Na 128 -likely 2/2 dehydration -nephro consulted, recs appreciated #IDDM -holding home glipizide -increase insulin, detemir 10 to 15 U qhs -ISS/accuchecks qAC/HS #HTN cont. home meds, lisinopril #6mm Left Base Pulmonary Nodule -Seen on CT Chest -stable/unchanged from previous, likely benign -cont. to monitor -f/u as o/p for repeat CT in 6-12 months DVT PPx: lovenox Time spent on encounter: 39 mins, 22 mins spent on pt counseling, coordination of care. Discussed case w/ Nephro, RN at bedside. Time of note doesn't reflect time of encounter. Subjective Allergies: Coded Allergies: NO KNOWN ALLERGIES (Verified Allergy, Unknown, 10/11/19) Subjective POD 2 Doing well Pain controlled Hb dip c/w op losses, no signs of bleeding at this time Na 128 Plt 321 -> 129 over 35 hrs, no hep products given, slowly improving Has not yet ambulated, sat up w/PT No BM yet 12 pt ros neg except as above Objective Last 24 Hour Vital Signs Date Time Temp Pulse Resp B/P (MAP) Pulse Ox O2 Delivery O2 Flow Rate FiO2 10/14/19 08:31 129/82 10/14/19 08:00 99.0 110 27 129/82 (98) 100 10/14/19 04:00 99.3 112 20 126/68 (87) 97 10/14/19 00:00 99.5 104 22 140/76 (97) 97 10/13/19 21:00 Room Air 10/13/19 20:00 100.0 102 24 145/88 (107) 96 10/13/19 16:00 98.6 67 18 131/73 (92) 98 10/13/19 12:00 98.1 61 18 101/53 (69) 98 Intake and Output 10/13/19 10/14/19 19:00 07:00 Intake Total 1050 ml 925 ml Output Total 650 ml Balance 400 ml 925 ml Intake Oral 300 ml IV Total 750 ml 625 ml Other 300 ml Output Urine Total 650 ml Laboratory Tests 10/14/19 07:05: White Blood Count 7.5, Red Blood Count 2.49L, Hemoglobin 7.9L, Hematocrit 22.7L , Mean Corpuscular Volume 91, Mean Corpuscular Hemoglobin 31.9H, Mean Corpuscular Hemoglobin Concent 35.0, Red Cell Distribution Width 15.1H, Platelet Count 143L, Mean Platelet Volume 5.8L, Neutrophils (%) (Auto) , Lymphocytes (%) (Auto) , Monocytes (%) (Auto) , Eosinophils (%) (Auto) , Basophils (%) (Auto) , Neutrophils % (Manual) [Pending], Lymphocytes % (Manual) [Pending], Platelet Estimate [Pending], Platelet Morphology [Pending], Sodium Level 128L, Potassium Level 4.1, Chloride Level 98, Carbon Dioxide Level 23, Anion Gap 7, Blood Urea Nitrogen 10, Creatinine 1.0, Estimat Glomerular Filtration Rate 54.0, Glucose Level 310H, Calcium Level 8.2L Height (Feet): 5 Height (Inches): 3.00 Weight (Pounds): 159 Objective General: NAD, A&O x 3, laying comfortably in bed HEENT: NCAT, EOMi, MMM CV: RRR, no murmurs, rubs, or gallops Pulm: CTAB, No wheezes, rhonchi, or rales, no accessory muscle usage or conversational dyspnea GI: Soft, nontender, nondistended, bowel sounds present Ext: No lower extremity edema bilaterally Skin: Right hip w/bandage, c/d/i, no bruising, erythema appreciated Haydee Cotres M.D. Oct 14, 2019 09:09
--- NOTE | 2019-10-14 09:45 | NUR ---
Social Work This SW received a consult due to assist with a home safety evaluation. This SW spoke with patient (using Case Management Staff [place]e Interpretation, Rajwinder) who explains she is an undocumented resident, living with her spouse, Jesús and daughter, Destiny ([phone]). Patient aware that she does not qualify for insurance for placement at this time, while stating her spouse and daughter are planning to assist her after discharge. Patient was ambulatory, independent prior, using only a cane when out in the community prior. Patient has a steps, while stating she cannot walk up and down them very well. P.T to follow here for strengthening. This SW left a message with daughterDestiny to discuss discharge planning (awaiting call back at this time). Addendum: 10/14/19 at 1001 by DAKOTA NARAYAN Destiny Ovalles returned this SW call, stating she and other family (other daughter, one son and spouse) plan to assist patient as needed, after discharge. No other needs or concerns present at this time.
[2019-10-14] MEDS: D5 1/2NS w/KCl 20mEq 1,000 ML IV SCH (10:00)
--- NOTE | 2019-10-14 10:33 | NUR ---
*-*DISCHARGE PLANNING*-* PATIENT HAS BEEN REFERRED TO: [facility] P:[phone] F:[phone] [facility] P: [phone] F: [phone] [facility] P: [phone] F: [phone] ~~~~~~~~~~~~~~~CLINICALS FAXED~~~~~~~~~~~~~~~ Addendum: 10/14/19 at 1432 by TRISTAN BAXTER LVN ALL FACILITIES HAVE DENIED
--- NOTE | 2019-10-14 10:51 | NUR ---
NURSE NOTES: Dr. Cortes saw patient on rounds, lab results from AM reviewed. MD is aware of Hgb, Hct, and low Na. Referral to Dr. Reinoso (nephrology). Dr. Cortes also made aware of no urine output since molina cath removal in AM. Received orders to scan bladder and notify MD if any retention.
--- NOTE | 2019-10-14 11:48 | NUR ---
NURSE NOTES: Bladder scanned, noted 236ml or urine on scanner. MD Dr. Cortes notified. Received orders to reinsert molina cath and monitor I&O's. Orders noted and carried out.
[2019-10-14 12:00] VITALS: BP 128/80
--- NOTE | 2019-10-14 12:47 | Consultation ---
History of Present Illness General Chief Complaint: Multiple Trauma/Fall Reason for Consultation: Hyponatremia Present Illness HPI 74-year-old female with PMH of osteoarthritis, IDDM, HTN who presents with right hip pain after ground-level fall. He is found to have right Femoral Neck Fracture, s/p R katherine arthroplasty 10/12/19. Post op course complicated by hyponatremia- I have been consulted for further management. Allergies: Coded Allergies: NO KNOWN ALLERGIES (Verified Allergy, Unknown, 10/11/19) Medication History Scheduled Aspirin* (Aspir-Low*), 81 MG PO DAILY, (Reported) Docusate Sodium* (Colace*), 100 MG ORAL TWICE A DAY Enoxaparin* (Lovenox*), 30 MG SUBQ EVERY 12 HOURS Folic Acid* (Folic Acid*), 1 MG ORAL DAILY, (Reported) Glipizide* (Glipizide*), 5 MG ORAL BIDAC, (Reported) Insulin Aspart (Novolog Flexpen), 0 UNITS SUBQ BEFORE MEALS AND HS Insulin Detemir (Levemir Flexpen), 10 UNITS SUBQ QHS Levofloxacin* (Levaquin*), 500 MG ORAL DAILY, (Reported) Lisinopril (Lisinopril*), 40 MG ORAL DAILY, (Reported) Methotrexate Sodium* (Methotrexate*), 12.5 MG PO QWEEK, (Reported) Ranitidine Hcl* (Zantac*), 150 MG ORAL QHS, (Reported) Simvastatin (Zocor), 20 MG ORAL BEDTIME, (Reported) Scheduled PRN Acetaminophen* (Acetaminophen 325MG Tablet*), 650 MG ORAL Q4H PRN for fever Hydrocodone Bit/Acetaminophen 10-325* (Hydrocodon-Acetaminophn 10-325*), 1 EA ORAL Q4H PRN for mod pain Polyethylene Glycol 3350* (Miralax*), 17 GM ORAL HSPRN PRN for Constipation Sennosides (Senna-Gen), 8.6 MG ORAL DAILY PRN for Constipation Zolpidem Tartrate* (Ambien*), 5 MG ORAL HSPRN PRN for Insomnia Patient History Limited by: age, medical condition Healthcare decision maker Resuscitation status Full Code Advanced Directive on File Review of Systems All Other Systems: negative except mentioned in HPI ROS Narrative R hip pain Physical Exam General Appearance: WD/WN, no apparent distress Lines, tubes and drains: peripheral HEENT: normocephalic Neck: non-tender, normal alignment Respiratory/Chest: lungs clear Cardiovascular/Chest: normal peripheral pulses, normal rate Abdomen: normal bowel sounds Extremities: other - R hip TTP Neurologic: alert, oriented x 3 Last 24 Hour Vital Signs Date Time Temp Pulse Resp B/P (MAP) Pulse Ox O2 Delivery O2 Flow Rate FiO2 10/14/19 12:00 98.9 110 18 128/80 (96) 99 10/14/19 09:00 Room Air 10/14/19 08:31 129/82 10/14/19 08:00 99.0 110 20 129/82 (98) 100 10/14/19 04:00 99.3 112 20 126/68 (87) 97 10/14/19 00:00 99.5 104 22 140/76 (97) 97 10/13/19 21:00 Room Air 10/13/19 20:00 100.0 102 24 145/88 (107) 96 10/13/19 16:00 98.6 67 18 131/73 (92) 98 Intake and Output 10/13/19 10/14/19 19:00 07:00 Intake Total 1050 ml 925 ml Output Total 650 ml Balance 400 ml 925 ml Intake Oral 300 ml IV Total 750 ml 625 ml Other 300 ml Output Urine Total 650 ml Laboratory Tests Test 10/14/19 07:05 White Blood Count 7.5 K/UL (4.8-10.8) Red Blood Count 2.49 M/UL (4.20-5.40) L Hemoglobin 7.9 G/DL (12.0-16.0) L Hematocrit 22.7 % (37.0-47.0) L Mean Corpuscular Volume 91 FL (80-99) Mean Corpuscular Hemoglobin 31.9 PG (27.0-31.0) H Mean Corpuscular Hemoglobin Concent 35.0 G/DL (32.0-36.0) Red Cell Distribution Width 15.1 % (11.6-14.8) H Platelet Count 143 K/UL (150-450) L Mean Platelet Volume 5.8 FL (6.5-10.1) L Neutrophils (%) (Auto) % (45.0-75.0) Lymphocytes (%) (Auto) % (20.0-45.0) Monocytes (%) (Auto) % (1.0-10.0) Eosinophils (%) (Auto) % (0.0-3.0) Basophils (%) (Auto) % (0.0-2.0) Differential Total Cells Counted 100 Neutrophils % (Manual) 57 % (45-75) Lymphocytes % (Manual) 34 % (20-45) Monocytes % (Manual) 7 % (1-10) Eosinophils % (Manual) 2 % (0-3) Basophils % (Manual) 0 % (0-2) Band Neutrophils 0 % (0-8) Platelet Estimate Decreased L Platelet Morphology Normal Anisocytosis 1+ Sodium Level 128 MMOL/L (136-145) L Potassium Level 4.1 MMOL/L (3.5-5.1) Chloride Level 98 MMOL/L (98-107) Carbon Dioxide Level 23 MMOL/L (21-32) Anion Gap 7 mmol/L (5-15) Blood Urea Nitrogen 10 mg/dL (7-18) Creatinine 1.0 MG/DL (0.55-1.30) Estimat Glomerular Filtration Rate 54.0 mL/min (>60) Glucose Level 310 MG/DL (74-106) H Calcium Level 8.2 MG/DL (8.5-10.1) L Height (Feet): 5 Height (Inches): 3.00 Weight (Pounds): 159 Medications Current Medications Medications (Trade) Dose Ordered Sig/[place] Route PRN Reason Start Time Stop Time Status Last Admin Dose Admin Acetaminophen (Tylenol) 650 mg Q4H PRN ORAL Mild Pain (Pain Scale 1-3) 10/11/19 15:30 11/10/19 15:29 10/14/19 03:30 Acetaminophen (Tylenol) 650 mg Q4H PRN ORAL Temp >100.5 10/11/19 15:30 11/10/19 15:29 Acetaminophen (Tylenol) 650 mg Q4H PRN ORAL Temp >100.5 10/12/19 12:45 11/11/19 12:44 Acetaminophen/ Hydrocodone Bitart ([place] 5/325) 2 tab Q6H PRN ORAL Severe Pain (Pain Scale 7-10) 10/12/19 12:45 10/19/19 12:44 Bisacodyl (Dulcolax) 10 mg HSPRN PRN RECTAL Constipation 10/11/19 15:30 01/09/20 15:29 Bisacodyl (Dulcolax) 10 mg Q12H PRN RECTAL Constipation 10/12/19 12:45 01/10/20 12:44 Dextrose (Dextrose 50%) 25 ml Q30M PRN IV Hypoglycemia 10/11/19 17:00 01/09/20 16:59 Dextrose (Dextrose 50%) 50 ml Q30M PRN IV Hypoglycemia 10/11/19 17:00 01/09/20 16:59 Diphenhydramine HCl (Benadryl) 25 mg Q6H PRN ORAL Itching/Pruritis 10/11/19 15:30 11/10/19 15:29 Docusate Sodium (Colace) 100 mg EVERY 12 HOURS ORAL 10/11/19 21:00 11/10/19 20:59 10/14/19 08:30 Docusate Sodium (Colace) 100 mg THREE TIMES A DAY ORAL 10/12/19 18:00 11/11/19 17:59 10/13/19 17:11 Folic Acid (Folate) 1 mg DAILY ORAL 10/12/19 09:00 11/11/19 08:59 10/14/19 08:31 Insulin Aspart (NovoLOG) BEFORE MEALS AND HS SUBQ 10/11/19 21:00 01/09/20 20:59 10/14/19 11:30 Insulin Detemir (Levemir) 15 units QHS SUBQ 10/14/19 21:00 01/09/20 20:59 Lisinopril (PriniviL) 40 mg DAILY ORAL 10/12/19 09:00 11/11/19 08:59 10/14/19 08:31 Magnesium Hydroxide (Mom) 30 ml DAILYPRN PRN ORAL Constipation 10/12/19 12:45 11/11/19 12:44 Magnesium Hydroxide (Mom) 30 ml HSPRN PRN ORAL Constipation 10/11/19 15:30 11/10/19 15:29 Morphine Sulfate (Morphine Sulfate) 2 mg Q4H PRN IVP For moderate pain 10/12/19 09:45 10/19/19 09:44 10/13/19 21:47 Morphine Sulfate (Morphine Sulfate) 4 mg Q4H PRN IVP Severe pain 10/12/19 09:45 5/2/20 09:44 10/14/19 06:02 Ondansetron HCl (Zofran) 4 mg Q4H PRN IVP Nausea & Vomiting 10/12/19 16:45 11/11/19 16:44 10/12/19 16:42 Oxycodone HCl (Roxicodone) 5 mg Q4H PRN ORAL Breakthrough Pain 10/12/19 12:45 10/19/19 12:44 Oxycodone/ Acetaminophen (Percocet 10/325) 1 tab Q4H PRN ORAL Severe Breakthru Pain (>7) 10/11/19 16:00 10/18/19 15:59 Polyethylene Glycol (Miralax) 17 gm HSPRN PRN ORAL Constipation 10/11/19 15:30 11/10/19 15:29 Temazepam (RestoriL) 7.5 mg DAILY PRN ORAL Insomnia 10/12/19 12:45 10/19/19 12:44 Tramadol HCl (Ultram) 25 mg Q4H PRN ORAL Moderate pain 10/12/19 09:45 10/19/19 09:44 Tramadol HCl (Ultram) 50 mg Q4H PRN ORAL Severe pain 10/12/19 09:45 10/19/19 09:44 Assessment/Plan Diagnosis [place] I: #Hyponatremia - likely siadh in the post up stage #Right Femoral Neck Fracture, s/p R katherine arthroplasty 10/12/19 #s/p fall #HTN #DM #OA - check urine chem - DC IVF - restrict free water to less than 1L - pain control - BG control on current regimen - lisinopril 40mg daily - bowel regimen - monitor sodium closely Charles Reinoso M.D. Oct 14, 2019 12:47
--- NOTE | 2019-10-14 14:34 | NUR ---
*-*DISCHARGE PLANNING*-* [facility], NOT ACCEPTING ANY PATIENTS [facility], NO BEDS AVAILABLE [facility], NOT ACCEPTING ANY PATIENTS Addendum: 10/14/19 at 1437 by CURT ESPINOSA CM *-*DISCHARGE PLANNING*-* [facility], NOT ACCEPTING ANY PATIENTS [facility], NO BEDS AVAILABLE [facility], NOT ACCEPTING ANY PATIENTS
[2019-10-14] MEDS: Enoxaparin 40mg Inj SUBQ SCH (15:55)
[2019-10-14 16:00] VITALS: BP 128/78
--- NOTE | 2019-10-14 19:41 | NUR ---
HAND-OFF: Report given to Cathi CORONA.
--- NOTE | 2019-10-14 19:45 | NUR ---
NURSE NOTES: Received report from CHLOE Whyte. Patient alert, oriented. No distress noted. Bed in low position, locked, side rails up x2, call light within reach. Communicating well with nurse in [place]. Will continue to monitor.
[2019-10-14 20:00] VITALS: BP 131/76
[2019-10-14] MEDS ORDERED: Levemir Flexpen SUBQ SCH (21:00)
[2019-10-14] MEDS: HYDROcodone/Acetamin 5/325 tab ORAL PRN (21:58)
[2019-10-15] VITALS: BP 119/68
[2019-10-15 04:00] VITALS: BP 140/88
[2019-10-15] MEDS: HYDROcodone/Acetamin 5/325 tab ORAL PRN (06:32)
[2019-10-15] MEDS: NovoLOG Insulin Flexpen SUBQ SCH ×2 (06:35→12:19)
[2019-10-15 07:00] LABS: ANION GAP 6 mmol/L (5-15); BLOOD UREA NITROGEN 11 mg/dL (7-18); CALCIUM 8.6 MG/DL (8.5-10.1); CARBON DIOXIDE 26 MMOL/L (21-32); CHLORIDE 104 MMOL/L (98-107); CREATININE 0.7 MG/DL (0.55-1.30); POTASSIUM 4.3 MMOL/L (3.5-5.1); SODIUM 136 MMOL/L (136-145)
[2019-10-15 08:00] VITALS: BP 138/68
--- NOTE | 2019-10-15 08:30 | NUR ---
HAND-OFF: Report given to CHLOE Bolden.
--- NOTE | 2019-10-15 08:30 | NUR ---
NURSE NOTES: Patient is in bed awake and able to verbalize needs. Stable. Denies pain or SOB. Patient instructed to use call light for assistance, verbalized understanding. Patient is in bed in locked and lowest position with call light within reach. All safety measures provided. Will continue to monitor.
[2019-10-15] MEDS: Docusate 100mg cap ORAL SCH ×2 (08:43→12:18)
[2019-10-15] MEDS: Lisinopril 20mg tab ORAL SCH (08:43)
[2019-10-15] MEDS: Enoxaparin 40mg Inj SUBQ SCH (08:44)
[2019-10-15] MEDS ORDERED: TRAMADOL HCL50 MG ORAL (09:34)
[2019-10-15] MEDS ORDERED: ELIQUIS2.5 MG PO (09:34)
[2019-10-15 09:58] LABS: BASOPHILS % (AUTO) 0.7 % (0.0-2.0); EOSINOPHILS % (AUTO) 3.8 % (0.0-3.0); HEMATOCRIT 24.4 % (37.0-47.0); HEMOGLOBIN 8.4 G/DL (12.0-16.0); LYMPHOCYTES % (AUTO) 20.2 % (20.0-45.0); MEAN CORPUSCULAR VOLUME 91 FL (80-99); MONOCYTES % (AUTO) 9.3 % (1.0-10.0); PLATELET COUNT 177 K/UL (150-450); RED BLOOD COUNT 2.67 M/UL (4.20-5.40); WHITE BLOOD COUNT 7.5 K/UL (4.8-10.8)
[2019-10-15] MEDS ORDERED: NORCO 5-325 TA1 EAC1 ORAL (10:09)
--- NOTE | 2019-10-15 10:15 | NUR ---
NURSE NOTES: F/c removed as ordered. Patient instructed to notify RN when able to void, will continue to monitor.
--- NOTE | 2019-10-15 10:44 | NUR ---
DISCHARGE PLANNED: NO INSURANCE TO OBTAIN SERVICES FOR HOME HEALTH AND HALF-WAY PATIENT WILL DC HOME WITH FAMILY
[2019-10-15] MEDS ORDERED: COLACE100 MG ORAL (10:49)
--- NOTE | 2019-10-15 11:57 | Nephrology Progress Note ---
Assessment/Plan Plan #Hyponatremia - likely siadh in the post up stage- improved #Right Femoral Neck Fracture, s/p R katherine arthroplasty 10/12/19 #s/p fall #HTN #DM #OA - off IVF - restrict free water to less than 1L - pain control - BG control on current regimen - lisinopril 40mg daily - bowel regimen - monitor sodium closely Subjective ROS Limited/Unobtainable: No Constitutional: Denies: no symptoms, chills, diaphoresis, fever, malaise, weakness, other HEENT: Denies: no symptoms, eye pain, blurred vision, tearing, double vision, ear pain, ear discharge, nose pain, nose congestion, throat pain, throat swelling, mouth pain, mouth swelling, other Genitourinary: Denies: no symptoms, burning, discharge, frequency, flank pain, hematuria, incontinence, pain, urgency, other Neurologic/Psychiatric: Denies: no symptoms, anxiety, depressed, emotional problems, headache, numbness, paresthesia, pre-existing deficit, seizure, tingling, tremors, weakness, other Objective Objective Last 24 Hour Vital Signs Date Time Temp Pulse Resp B/P (MAP) Pulse Ox O2 Delivery O2 Flow Rate FiO2 10/15/19 09:00 Room Air 10/15/19 08:43 138/68 10/15/19 08:00 99.5 98 19 138/68 (91) 98 10/15/19 04:00 98.3 100 16 140/88 (105) 98 10/15/19 00:00 99.0 101 16 119/68 (85) 100 10/14/19 21:00 Room Air 10/14/19 20:00 98.9 106 18 131/76 (94) 99 10/14/19 16:00 98.7 105 18 128/78 (95) 98 10/14/19 12:00 98.9 110 18 128/80 (96) 99 Intake and Output 10/14/19 10/15/19 19:00 07:00 Intake Total 450 ml 1000 ml Output Total 2050 ml Balance 450 ml -1050 ml Intake Oral 1000 ml IV Total 450 ml Output Urine Total 2050 ml Laboratory Tests 10/14/19 14:05: Urine Osmolality 246L, Urine Random Sodium 40 10/15/19 05:45: White Blood Count 7.5, Red Blood Count 2.67L, Hemoglobin 8.4L, Hematocrit 24.4L , Mean Corpuscular Volume 91, Mean Corpuscular Hemoglobin 31.6H, Mean Corpuscular Hemoglobin Concent 34.6, Red Cell Distribution Width 15.0H, Platelet Count 177, Mean Platelet Volume 5.0L, Neutrophils (%) (Auto) 66.0, Lymphocytes (%) (Auto) 20.2, Monocytes (%) (Auto) 9.3, Eosinophils (%) (Auto) 3.8H, Basophils (%) (Auto) 0.7, Sodium Level 136, Potassium Level 4.3, Chloride Level 104, Carbon Dioxide Level 26, Anion Gap 6, Blood Urea Nitrogen 11, Creatinine 0.7, Estimat Glomerular Filtration Rate > 60, Glucose Level 224H, Osmolality 287L, Calcium Level 8.6, Phosphorus Level 2.0L, Magnesium Level 1.8, Thyroid Stimulating Hormone (TSH) 1.407, Cortisol AM Sample [Pending] Height (Feet): 5 Height (Inches): 3.00 Weight (Pounds): 159 Charles Reinoso M.D. Oct 15, 2019 11:57
[2019-10-15 12:00] VITALS: BP 129/70
[2019-10-15] MEDS ORDERED: Phospha 250 Neutral tab ORAL ONE (12:00)
--- NOTE | 2019-10-15 14:45 | Discharge Summary ---
Discharge Summary Hospital Course Date of Admission Oct 11, 2019 at 14:08 Date of Discharge Admitting Diagnosis r hip fracture HPI Emilia Ramirez is a 74 year old female who was admitted on Oct 11, 2019 at 14:08 for Right Hip Fracture S: no acute distress, had gas this AM. PE: Generael: NAD CV: RRR Lungs: CTAB Abd: soft, non-tender, non-distended Ext: right hip w/bandage c/d/i Hospital Course 74-year-old female with PMH of osteoarthritis, IDDM, HTN who presents with right hip pain after ground-level fall. CT head revealed right femoral neck fracture, Ortho, Dr. Long, performed right hemiarthroplasty on 10/11. Pt noted w/hyponatremia improved after fluid restriction. Anemia noted post operatively, expected due to surgery, now stable. Pt refused [facility] on d/c , pt is uninsured. Recommend home health however unable to accept due to insurance. D/w pt's Daughter, Elena, states she will help pt at home with ambulation. Explained to daughter need to take apixiban bid x35 days for DVT ppx and to f/u w/PCP and ortho as o/p. Daughter expressed understanding. #Right Femoral Neck Fracture, s/p R katherine arthroplasty 10/12/19 #Ground Level Fall #Anemia due to acute blood loss, post op (expected) #Thrombocytopenia #Hyponatremia #IDDM #HTN #6mm Left Base Pulmonary Nodule D/c planning >30 mins. Time of note doesn't reflect time of encounter. Discharge Medications New Medications: Apixaban (Eliquis) 2.5 Mg Tablet 2.5 MG PO BID for 35 Days, #70 TAB Docusate Sodium* (Colace*) 100 Mg Capsule 100 MG ORAL BID for 30 Days, #60 CAP 3 Refills Hydrocodone Bit/Acetaminophen 5-325* ([place] 5-325 Tablet*) 1 Each Tablet 1 TAB ORAL Q8H PRN for 14 Days, #42 TAB Continued Medications: Acetaminophen* (Acetaminophen 325MG Tablet*) 325 Mg Tablet 650 MG ORAL Q4H PRN for fever, #20 TAB Folic Acid* (Folic Acid*) 1 Mg Tablet 1 MG ORAL DAILY, TAB Glipizide* (Glipizide*) 5 Mg Tablet 5 MG ORAL BIDAC for DM, TAB (This prescription has been renewed) Insulin Aspart (Novolog Flexpen) 100 Units/Ml Pen 0 UNITS SUBQ BEFORE MEALS AND HS, #1 EA Insulin Detemir (Levemir Flexpen) 100 Unit/1 Ml Insuln.pen 10 UNITS SUBQ QHS, #1 EA Lisinopril (Lisinopril*) 5 Mg Tablet 40 MG ORAL DAILY for HTN, TAB Methotrexate Sodium* (Methotrexate*) 2.5 Mg Tablet 12.5 MG PO QWEEK, TAB Polyethylene Glycol 3350* (Miralax*) 17 Gm Powd.pack 17 GM ORAL HSPRN PRN for Constipation, #15 PACK Ranitidine Hcl* (Zantac*) 150 Mg Tablet 150 MG ORAL QHS, TAB Sennosides (Senna-Gen) 8.6 Mg Tablet 8.6 MG ORAL DAILY PRN for Constipation, #10 TAB Simvastatin (Zocor) 20 Mg Tablet 20 MG ORAL BEDTIME, TAB Zolpidem Tartrate* (Ambien*) 5 Mg Tablet 5 MG ORAL HSPRN PRN for Insomnia, #10 TAB Discontinued Medications: Aspirin* (Aspir-Low*) 81 Mg Tablet.dr 81 MG PO DAILY Docusate Sodium* (Colace*) 100 Mg Capsule 100 MG ORAL TWICE A DAY, #30 CAP Enoxaparin* (Lovenox*) 30 Mg/0.3 Ml Inj 30 MG SUBQ EVERY 12 HOURS, #12 SYR Hydrocodone Bit/Acetaminophen 10-325* (Hydrocodon-Acetaminophn 10-325*) 1 Each Tablet 1 EA ORAL Q4H PRN for mod pain, #30 TAB Levofloxacin* (Levaquin*) 500 Mg Tablet 500 MG ORAL DAILY for 6 Days, TAB Discharge Condition Upon Discharge: stable Discharge Vital Signs Last Vital Signs Date Time Temp Pulse Resp B/P (MAP) Pulse Ox O2 Delivery O2 Flow Rate FiO2 10/15/19 12:00 98.0 92 18 129/70 (89) 93 10/15/19 09:00 Room Air 10/12/19 15:30 3 Discharge Disposition Patient was discharged to home Haydee Cortes M.D. Oct 15, 2019 14:45
--- NOTE | 2019-10-15 16:10 | NUR ---
NURSE NOTES: Patient discharged home as ordered. Stable. Thorough discharge instructions given to patient by Dr. Cortes with RN at bedside. Patient was given thorough medication teaching with daughter Angelica on the phone listening in on instructions. Patient and daughter Angelica verbalized understanding. Patient has prescription for medication and verbalized that she will fill medication at own pharmacy. Patient has all belongings. Patient able to void without c/o discomfort or pain. Patient's skin is c/d/i. Surgical site c/d/i. No pain noted at this time. No IV access. Patient assisted downstairs by staff without incident.
--- NOTE | 2019-10-15 16:10 | NUR ---
CASE MANAGEMENT: INITIAL REVIEW 74YR OLD FEMALE BIBA FROM HOME CC: MULTIPLE TRAMA/ FALL SI:FALL . CLOSED RIGHT HIP FRACTURE 97.0 97 17 138/72 99% ON RA BG 263 BUN 25 PTT 21 URINE OSMO 246 IS:IV MORPHINE SULFATE X1 IV ZOFRAN X1 TDAP IM X1 NOVOLOG SQ AC&HS TIBIA/FIBULA X-RAY-No evidence of acute shaft fracture. KNEE X-RAY- No acute fractures;surgical hardware old healed lateral tibial plateau and proximal tibial fracture. HIP/PELVIC N-FWE-Smefpkne for right femoral neck fracture CT HIP- Positive for right femoral neck fracture as described FEMUR H-ZAV-Wcczmouu for right femoral neck fracture ELBOW X-RAY- No definite acute bony trauma CHEST X-RAY-No acute process ANKLE X-RAY-No definite acute bony trauma CT ABDOMINAL/PELVIC-Right femoral neck fracture. \: [facility]G UNIT DCP: HOME WHEN STABLE CASE MANAGEMENT: REVIEW 10/12/19 SI:FALL . CLOSED RIGHT HIP FRACTURE 99.1 77 17 147/91 95% ON RA NA+ 135 BG 226 IS:IN SURGERY NOW IV ANCEF Q8HR IV NS @75ML/HR LISINOPRIL PO QD IV MORPHINE SULFATE Q4HR/PRN NOVOLOG SQ AC&HS TYLENOL Q4HR/PRN HIP/PELVIS G-FPS-Drhuphbhvzdnsg imaging as described HIP/PELVIS I-OPD-Yqhtgzhnwrsir right hip. No unusual features \: [facility]G UN[facility] DCP: HOME WHEN STABLE CASE MANAGEMENT: REVIEW 10/13/19 SI:S/P RIGHT HIP HEMIARTHROPLASTY FALL . CLOSED RIGHT HIP FRACTURE 100.0 102 24 145/88 96% ON RA NA+ 131 BG 343 CA+ 8.2 H/H 8.9/24.8 PLT 129 IS:IV ANCEF Q8HR IV NS @75ML/HR IV MORPHINE SULFATE Q4HR/PRN NOVOLOG SQ AC&HS LISINOPRIL PO QD TYLENOL Q4HR/PRN \: [facility]G UNIT DCP: HOME WHEN STABLE CASE MANAGEMENT: REVIEW 10/14/19 SI:S/P RIGHT HIP HEMIARTHROPLASTY FALL . CLOSED RIGHT HIP FRACTURE 99.5 104 22 140/76 97% ON RA H/H 7.9/22.7 PLT 143 NA+ 128 BG 310 CA+ 8.2 IS:IV ANCEF Q8HR IV NS @75ML/HR IV MORPHINE SULFATE Q4HR/PRN LOVENOX SQ QD NOVOLOG SQ AC&HS LISINOPRIL PO QD LEVEMIR SQ QHS TYLENOL Q4HR/PRN \: 4E MED SURG UNIT DCP: HOME WHEN STABLE PLAN: MEDICAL PRESUMPTIVE -UNABLE TO SERVICE WITH HOME HEALTH OR SNF
== END 2019-10-15 16:00 | disposition home or self-care (01) | DRG 301 ==
LOC: EDBD 13:19 → EMR 13:48 → 4E 14:08 → EDBEDREQ 15:06
PROC: 0SRR0JZ Replacement of Right Hip Joint, Femoral Surface with Synthetic Substitute, Open Approach (ICD-10-PCS; principal; 2019-10-12 12:30)
DX: S72.001A Fracture of unspecified part of neck of right femur, initial encounter for closed fracture (principal); W01.0XXA Fall on same level from slipping, tripping and stumbling without subsequent striking against object, initial encounter; Y92.002 Bathroom of unspecified non-institutional (private) residence as the place of occurrence of the external cause; R91.1 Solitary pulmonary nodule; D62 Acute posthemorrhagic anemia; E87.1 Hypo-osmolality and hyponatremia; I10 Essential (primary) hypertension; E11.9 Type 2 diabetes mellitus without complications; Z79.82 Long term (current) use of aspirin; Z79.4 Long term (current) use of insulin; M19.90 Unspecified osteoarthritis, unspecified site; D69.6 Thrombocytopenia, unspecified
CPT/HCPCS: 36415; 71045; 72170; 73521; 74176; 80048; 80053; 82306; 82533; 82962; 83735; 83930; 83935; 84100; 84300; 84443; 85007; 85025; 85610; 85730; 90471; 90715; 93005; 94003; 94150; 96374; 96375; 99285; C9399; J1815; J2405; S5561